=== PATIENT | male | born 1970 ===

== ENCOUNTER 2024-12-15 15:09 | Outpatient (REF) | payer MEDICAID, SELFPAY ==
[2024-12-15 14:48] LABS: Abs Immature Grans 0.12 10^3/uL (0.0-0.06); Absolute Basophil Count 0.07 10^3/uL (0.0-0.2); Absolute Eosinophil Count 0.45 10^3/uL (0.0-0.7); Absolute Lymphocyte Count 1.61 10^3/uL (1.2-3.4); Absolute Monocyte Count 1.04 10^3/uL (0.1-0.8); Absolute Neutrophil Count 6.85 10^3/uL (1.2-6.7); Basophils % 0.7 %; Eosinophils % 4.4 %; Immature Grans % 1.2 %; Lymphocytes % 15.9 %; MCH 20.7 pg (27.0-33.0); MCHC 29.7 % (32.0-36.0); MCV 70 fL (80-95); MPV 10.5 fL (8.0-11.0); Monocytes % 10.3 %; Neutrophils % 67.5 %; Platelet Count 318 10^3/uL (130-400); RBC 5.31 10^6/uL (4.36-5.78); RDW 21.4 % (11.8-14.1); RDW-SD 51.2 fL; WBC 10.14 10^3/uL (4.4-10.8)
[2024-12-15 15:12] LABS: Anisocytosis 2+; Diff Comment RBC Morph Reviewed; Microcytosis 2+
[2024-12-15 15:15] LABS: ALT 189 U/L (16-63); AST 48 U/L (15-37); Albumin 3.1 g/dL (3.4-5.0); Alkaline Phosphatase 488 U/L (46-116); Anion Gap 11.7 mmol/L (3-11); BUN 30 mg/dL (7-18); Bilirubin, Total 0.9 mg/dL (0.2-1.0); CO2 25.3 mmol/L (21.0-32.0); Calcium 9.4 mg/dL (8.5-10.1); Chloride 96 mmol/L (98-107); Estimated GFR 39.42 (mL/min/1.73m2); Glucose 180 mg/dL (74-106); Magnesium 2.5 mg/dL (1.8-2.4); Sodium 133 mmol/L (136-145)
[2024-12-15 15:29] LABS: Hemoglobin A1C 7.9 % (<5.7)
== END 2024-12-15 15:10 | disposition home or self-care (01) ==
LOC: LBN 15:09
PROVIDERS: Visit Provider Family Medicine
DX: I30.0 Acute nonspecific idiopathic pericarditis (principal)
CPT/HCPCS: 80053; 83036; 83735; 85025

== ENCOUNTER 2025-01-02 14:36 | Outpatient (REF) | payer MEDICAID, SELFPAY ==
[2025-01-02 15:06] LABS: Troponin I 11 ng/L (<or=76)
[2025-01-02 15:07] LABS: Abs Immature Grans 0.11 10^3/uL (0.0-0.06); Absolute Basophil Count 0.08 10^3/uL (0.0-0.2); Absolute Lymphocyte Count 0.82 10^3/uL (1.2-3.4); Basophils % 0.4 %; Eosinophils % 0.1 %; HCT 35.3 % (40.0-50.0); HGB 10.3 g/dL (13.5-17.5); Immature Grans % 0.6 %; Lymphocytes % 4.2 %; MCH 21.6 pg (27.0-33.0); MCHC 29.2 % (32.0-36.0); MCV 74 fL (80-95); MPV 10.9 fL (8.0-11.0); Monocytes % 10.6 %; Neutrophils % 84.1 %; Platelet Count 227 10^3/uL (130-400); RBC 4.76 10^6/uL (4.36-5.78); RDW 21.4 % (11.8-14.1); RDW-SD 56.3 fL; WBC 19.51 10^3/uL (4.4-10.8)
[2025-01-02 15:20] LABS: Absolute Eosinophil Count 0.02 10^3/uL (0.0-0.7); Absolute Monocyte Count 2.07 10^3/uL (0.1-0.8); Absolute Neutrophil Count 16.41 10^3/uL (1.2-6.7)
[2025-01-02 15:21] LABS: Anisocytosis 2+; Diff Comment Diff Reviewed; Microcytosis 1+
[2025-01-02 15:29] LABS: ALT 20 U/L (16-63); AST 30 U/L (15-37); Albumin 2.6 g/dL (3.4-5.0); Alkaline Phosphatase 143 U/L (46-116); Anion Gap 7.2 mmol/L (3-11); Bilirubin, Total 0.8 mg/dL (0.2-1.0); CO2 29.8 mmol/L (21.0-32.0); Chloride 98 mmol/L (98-107); Glucose 108 mg/dL (74-106); Potassium 4.5 mmol/L (3.5-5.1); Sodium 135 mmol/L (136-145); TSH 1.55 uIU/mL (0.36-3.74); Total Protein 8.2 g/dL (6.4-8.2)
[2025-01-02 15:35] LABS: BUN 33 mg/dL (7-18); CREATININE 2.5 mg/dL (0.70-1.30); Calcium 9.1 mg/dL (8.5-10.1); Estimated GFR 30.16 (mL/min/1.73m2)
[2025-01-02 15:49] LABS: Hemoglobin A1C 7.7 % (<5.7)
== END 2025-01-02 14:37 | disposition home or self-care (01) ==
LOC: LBN 14:36
PROVIDERS: Visit Provider Family Medicine
DX: E11.628 Type 2 diabetes mellitus with other skin complications (principal); L08.9 Local infection of the skin and subcutaneous tissue, unspecified; N18.32 Chronic kidney disease, stage 3b
CPT/HCPCS: 80053; 83036; 84443; 84484; 85025

== ENCOUNTER 2025-01-02 17:31 | Observation (INO) | payer MEDICAID, SELFPAY ==
[2025-01-02] VITALS (48 sets, daily range): BP systolic 92–137; BP diastolic 42–111; PULSE 80–101; RESP 11–30; TEMP 36.7–39; O2SAT 82–99
--- NOTE | 2025-01-02 18:00 | DI.CT_ITS ---
Exam(s) CT CHEST/ABD/PEL WO EXAM: CT CHEST/ABD/PEL WO CLINICAL HISTORY: abdominal pain,fever. TECHNIQUE: Imaging Protocol: Axial computed tomography images with coronal and sagittal reformatted images were created and reviewed CONTRAST MATERIAL: Intravenous: none Oral: None COMPARISON: No exams were available for comparison FINDINGS: CHEST: Are degraded by motion artifact. LUNGS: There are mild increased markings in the lower lobes, most prominent in the posterior basal se gment of the left lower lobe. There are no large infiltrates nor pleural effusions are no ominous pu lmonary nodules.. MEDIASTINUM: No obvious hilar nor mediastinal adenopathy. Visualized thyroid unremarkable. CARDIAC: Heart size is normal. There is no pericardial effusion.Caliber of the thoracic aorta is wit hin normal limits. OSSEOUS: No significant osseous lesions.No fractures evident.. ABDOMEN: Mildly elevated left hemidiaphragm. No evidence of sub diaphragmatic abscess although the spleen is noted to be enlarged. There is no ascites. LIVER: There are no obvious focal hepatic lesions evident of this noninfused study. GALLBLADDER/BILIARY: No obvious gallbladder pathology. CBD is not dilated. PANCREAS: No evidence of obvious pancreatic mass nor dilatation of the pancreatic duct. SPLEEN: Spleen is enlarged. Measures 18 cm craniocaudal. ADRENALS: There are no significant adrenal masses. KIDNEYS: No calculi nor hydronephrosis. No obvious solid renal masses. No cysts evident. ABDOMINAL AORTA: Abdominal aorta is not enlarged. LYMPH NODES: There few slightly enlarged retroperitoneal and para-aortic lymph nodes. Also some lymp hadenopathy in the pelvis along the iliac chains. ABDOMINAL WALL/GI: No evidence of significant anterior abdominal wall nor inguinal hernia. No evidence of bowel obstruction. PELVIS: LYMPH NODES: As above GI: No evidence of appendicitis.No evidence of sigmoid diverticulitis. URINARY BLADDER: Urinary bladder is slightly distended. There is also gas bubble in the urinary blad millie. There is a Barnes catheter/balloon but it is not in the urinary bladder and is indeed in the pen ile urethra REPRODUCTIVE: Prostate small and seminal vesicles unremarkable. OSSEOUS: No significant osseous lesions. No fractures. IMPRESSION: 1. No acute intrathoracic findings. 2. Splenomegaly and there also mildly enlarged para-aortic lymph nodes evident. 3. Barnes catheter and balloon are located within the penile urethra and should be repositioned into t he urinary bladder. Single bubble in the bladder lumen is most probably related to the recent Barnes catheterization procedure. RADIATION DOSE DELIVERED: 1,793.92mGy.cm Total DLP DATA REPOSITORY: All CT scans at this facility are submitted to the National Radiology Data Registry (NRDR) Dose Index Registry (DIR) with the [employer] (ACR). RADIATION OPTIMIZATION: All CT scans at this facility use at least one of these dose optimization te chniques: automated exposure control; mA and/or kV adjustment per patient size (includes targeted exa ms where dose is matched to clinical indication); or iterative reconstruction.
--- NOTE | 2025-01-02 18:00 | RT.EKG_ITS ---
APPROVED REPORT Exam: Resting ECG Reason for Exam: weakness Patient Location: E HR:91 bpm ECG Measurements Heart Rate 91 AXIS CA 174 P 44 QRSd 103 QRS 100 QT 396 T 55 QTc 487 Conclusion Sinus rhythm...normal P axis, V-rate 60- 99 Right axis deviation...QRS axis (100,269) Low voltage, precordial leads...precordial leads <1.0mV
[2025-01-02 18:15] LABS: BE (Venous) 6 mmol/L (-2-3); HCO3 (Venous) 30 mmol/L (23-28); Lactate 1.1 mmol/L (<or=2.0); O2 Sat (Venous) 67 %; TCO2 (Venous) 28 mmol/L (24-29); pCO2 (Venous) 48 mmHg (41-51); pH (Venous) 7.41 (7.31-7.41); pO2 (Venous) 38 mmHg
[2025-01-02 18:20] LABS: Abs Immature Grans 0.15 10^3/uL (0.0-0.06); Absolute Eosinophil Count 0.02 10^3/uL (0.0-0.7); Basophils % 0.4 %; Eosinophils % 0.1 %; HCT 35.6 % (40.0-50.0); HGB 10.5 g/dL (13.5-17.5); Immature Grans % 0.8 %; Lymphocytes % 4.8 %; MCH 21.5 pg (27.0-33.0); MCHC 29.5 % (32.0-36.0); MCV 73 fL (80-95); MPV 9.9 fL (8.0-11.0); Monocytes % 9.6 %; Neutrophils % 84.3 %; Platelet Count 226 10^3/uL (130-400); RBC 4.88 10^6/uL (4.36-5.78); RDW-SD 54.3 fL; WBC 18.69 10^3/uL (4.4-10.8)
[2025-01-02 18:22] LABS: Absolute Basophil Count 0.07 10^3/uL (0.0-0.2); Absolute Monocyte Count 1.79 10^3/uL (0.1-0.8); Absolute Neutrophil Count 15.76 10^3/uL (1.2-6.7)
[2025-01-02 18:34] LABS: Anisocytosis 2+; Diff Comment Diff Reviewed; Microcytosis 1+
[2025-01-02 18:37] LABS: ALT 22 U/L (16-63); AST 29 U/L (15-37); Albumin 2.6 g/dL (3.4-5.0); Alkaline Phosphatase 149 U/L (46-116); Anion Gap 6.3 mmol/L (3-11); BUN 31 mg/dL (7-18); Bilirubin, Total 0.8 mg/dL (0.2-1.0); CO2 30.7 mmol/L (21.0-32.0); CREATININE 2.5 mg/dL (0.70-1.30); Calcium 9.2 mg/dL (8.5-10.1); Chloride 97 mmol/L (98-107); Estimated GFR 30.16 (mL/min/1.73m2); Glucose 149 mg/dL (74-106); Lipase 20 U/L (<78); Potassium 4.4 mmol/L (3.5-5.1); Sodium 134 mmol/L (136-145); Total Protein 8.5 g/dL (6.4-8.2); Troponin I 15 ng/L (<or=76)
[2025-01-02] MEDS: Dexamethasone 10 MG/ML VIAL 6 MG IVP (18:38)
[2025-01-02] MEDS: Albuterol/Ipratropium 3 ML UPD VIAL UPD (18:39)
[2025-01-02] MEDS: ACETAMINOPHEN 500 MG/50 ML BAG 200 MG IVPB (18:39)
[2025-01-02] MEDS: PIPERACILLIN/TAZO 4.5 GM in Normal Saline 100 ML IVPB (18:46)
[2025-01-02] MEDS: Lactated Ringers 1,000 ML 125 ML IV (20:03)
[2025-01-02 20:20] LABS: COVID-19 PCR Negative (Negative); Influenza A PCR Negative (Negative); Influenza B PCR Negative (Negative); RSV PCR Negative (Negative)
[2025-01-02 20:21] LABS: Source Nasopharynx
--- NOTE | 2025-01-02 20:22 | DI.VRAD_ITS ---
Addendum created by Vicente Owusu MD on 01/02/2025 8:34:12 PM EDT: No acute abnormality involving the imaged portions of the right shoulder. No right shoulder joint effusion. No focal osseous lesion. No soft tissue edema or focal abscess. Initial report created on 01/02/2025 8:20:45 PM EDT: PROCEDURE INFORMATION: Exam: CT Chest Without Contrast; Diagnostic Exam date and time: 01/02/2025 7:18 PM Age: 54 years old Clinical indication: Abdominal pain; fever TECHNIQUE: Imaging protocol: Diagnostic computed tomography of the chest without contrast. 3D rendering (Not supervised by radiologist): MIP and/or 3D reconstructed images were created by the technologist. COMPARISON: No relevant prior studies available. FINDINGS: Lungs: No acute alveolar or ground glass infiltrate. Posterior left lower lobe linear parenchymal scarring or subsegmental collapse / atelectasis. Pleural spaces: No pleural fluid collection. No pneumothorax. Heart: No pericardial effusion. Lymph nodes: No enlarged lymph nodes. Vasculature: Normal caliber thoracic aorta without aneurysm. Bones/joints: Spinal degenerative changes. Soft tissues: Gynecomastia. IMPRESSION: No acute pulmonary infiltrate or pleural fluid collection. PROCEDURE INFORMATION: Exam: CT Abdomen And Pelvis Without Contrast Exam date and time: 01/02/2025 7:18 PM Age: 54 years old Clinical indication: Abdominal pain; fever TECHNIQUE: Imaging protocol: Computed tomography of the abdomen and pelvis without contrast. 3D rendering (Not supervised by radiologist): MIP and/or 3D reconstructed images were created by the technologist. COMPARISON: No relevant prior studies available. FINDINGS: Liver: Normal. No mass. Gallbladder and biliary ducts: Question a few faint stones within the proximal dependent portion of the gallbladder lumen versus overlying artifact. No ductal dilation. Pancreas: Normal. No ductal dilation. Spleen: Splenomegaly (17.4 cm CC dimension). Adrenal glands: Normal. No mass. Kidneys and ureters: Normal. No hydronephrosis. Stomach and bowel: Unremarkable. No obstruction. No mucosal thickening. Appendix: Normal appendix. Intraperitoneal space: No free air. No significant fluid collection. Vasculature: Unremarkable. No abdominal aortic aneurysm. Lymph nodes: A few scattered enlarged retroperitoneal and pelvic lymph nodes measuring up to 18-22 mm in size. Enlarged lymph nodes within each inguinal region. Urinary bladder: Please note that the Kwan catheter tip / Kwan catheter balloon are located within the penile urethra (sagittal images 66-67 / axial images [id number], series 2). Air within anterior portion of the bladder lumen, likely following kwan catheterization. Bladder infection cannot be totally excluded. Reproductive: Unremarkable as visualized. Bones/joints: Spinal degenerative changes. Soft tissues: Posterior subcutaneous edema in the lumbar region. IMPRESSION: 1. Please note that the Kwan catheter tip / Kwan catheter balloon are located within the penile urethra (sagittal images 66-67 / axial images [id number], series 2). 2. Splenomegaly (17.4 cm CC dimension). 3. A few scattered enlarged retroperitoneal and pelvic lymph nodes measuring up to 18-22 mm in size. Enlarged lymph nodes within each inguinal region. Dictated and Authenticated by: Vicente Owusu MD. Orderin Paco Torres MD
[2025-01-02 20:30] LABS: Troponin I 15 ng/L (<or=76)
[2025-01-02 20:38] LABS: Lab Add On Test DONE
[2025-01-02 21:04] LABS: Procalcitonin 6.88 ng/mL
[2025-01-02 21:19] LABS: Bilirubin Negative (Negative); Blood Moderate (Negative); Clarity Turbid (Clear); Glucose 250 mg/dL (Negative); Ketones Negative (Negative); Leukocyte Esterase Large (Negative); Nitrite Negative (Negative); Specific Gravity 1.015 (1.005-1.025); Urobilinogen 0.2 mg/dL (Up to 0.2)
[2025-01-02 21:28] LABS: C & S Indicated? Yes; WBC >50 HPF (0-5)
[2025-01-02] MEDS: VANCOMYCIN 2,000 MG in Normal Saline 500 ML 250 MG IVPB (21:38)
--- NOTE | 2025-01-02 21:54 | HPE_ITS ---
Date of service: 01/02/25 Time of Service: 21:54 Assessment and Plan Assessment and plan (1) UTI (urinary tract infection): Status: Acute Assessment and plan: Patient was started on vancomycin and awaiting culture results. (2) Diabetes: Status: Chronic Assessment and plan: Patient is on multiple medications and at this point they have not been reconciled. Will address when reconciliation is complete (3) Cellulitis: Status: Acute Assessment and plan: Patient does appear to have significant cellulitis on his legs. Will continue with vancomycin and add we will get a wound consult (4) Hypoventilation associated with obesity: Status: Acute Assessment and plan: Patient does appear to have significant hypoventilation as obstructive sleep apnea. Patient does not a CPAP at home. Strong recommendation for sleep study as well as initiation of CPAP (5) Obstructive sleep apnea: Status: Chronic Assessment and plan: As above (6) Clostridioides difficile diarrhea: Status: Acute Assessment and plan: This is a potential diagnosis of the gentleman is taking vancomycin 125 every 6 which would be an appropriate dose for a C. difficile infection. It does appear like he has been taking this for over a month though and recommended obtaining records from the prison facility to elucidate the real reason. (7) Neurogenic bladder: Status: Acute Assessment and plan: Patient does have a Barnes in place and this will be replaced in the ED. (8) CHF (congestive heart failure): Status: Chronic Assessment and plan: I will order an echocardiogram as well as a BNP. At this point it is unknown what sort of heart failure he has just shows up in his old records. Will also check a BNP at this time is unknown what type of congestive heart failure he has systolic versus diastolic acute versus chronic (9) Low mean corpuscular volume (MCV): Status: Acute Assessment and plan: Checking an iron and TIBC. (10) Depression: Status: Chronic Assessment and plan: Will continue with his home meds once they have been reconciled (11) Substance abuse: Status: Acute Assessment and plan: Continue with his home meds once they have been reconciled. I will also order a urine drug screen STD due to urine drug screen. History of Present Illness History of Present Illness Chief Complaint: somnolence and hypoxia Narrative: This is a 54-year-old gentleman who is new to the [facility] system and is currently living at a [place] [facility] rehab facility who presents today with worsening somnolence as well as hypoxia. Unfortunately upon my interview with the patient he is quite somnolent and keeps falling asleep interview. I have reviewed records from the prison facility and currently the patient is taking oral vancomycin as well as Bactrim for unknown reason. Work up in the ED included ct of chest/abd/pelvis as well as cbc/cmp/viral panel/ekg. the patient was noted to be hypoxic as well but his VBG was actually fairly benign. The patient was noted to have a decreased MCV as well. I have reviewed records from the prison facility. At the time of this admission reconciliation his medication is not done. Review of Systems Unobtainable due to mental status PFSH All Active Problems (Updated 01/02/25 @ 22:06 by Roger Farrell MD) Substance abuse (Acute) Depression (Chronic) Low mean corpuscular volume (MCV) (Acute) CHF (congestive heart failure) (Chronic) Neurogenic bladder (Acute) Clostridioides difficile diarrhea (Acute) Obstructive sleep apnea (Chronic) Hypoventilation associated with obesity (Acute) Cellulitis (Acute) Diabetes (Chronic) UTI (urinary tract infection) (Acute) Social History Smoking risk assessment performed?: No Exam Narrative Exam Narrative: Head eyes ears nose and throat: Normocephalic atraumatic mucous membranes moist oropharynx clear extract motions are intact he does appear to have a disconjugate gaze and mild anisocoria Neck: Enlarged but no obvious JVD or thyromegaly cardiovascular: Distant but no murmur rubs or gallops Lungs: Clear to auscultation bilaterally no accessory muscle use Abdomen: Protuberant bowel sounds decreased in all 4 quadrants Extremities: 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 Neurologic: Cannot be completely assessed due to mental status psych: Cannot be completely assessed due to mental status Results Labs 01/02/25 18:10 01/02/25 18:10 Labs: Laboratory Results - last 24 hr 01/02/25 01/02/25 01/02/25 18:10 19:39 20:08 WBC 18.69 H RBC 4.88 Hgb 10.5 L Hct 35.6 L MCV 73 L MCH 21.5 L MCHC 29.5 L RDW 21.0 H Plt Count 226 MPV 9.9 Immature Gran % 0.8 Neutrophils % 84.3 Lymphocytes % 4.8 Monocytes % 9.6 Eosinophils % 0.1 Basophils % 0.4 Nucleated RBC % 0.0 Absolute Neutrophils 15.76 H Absolute Lymphocytes 0.90 L Absolute Monocytes 1.79 H Absolute Eosinophils 0.02 Absolute Basophils 0.07 RBC Morphology See Below Anisocytosis 2+ Microcytosis 1+ VBG pH 7.41 VBG pCO2 48 VBG pO2 38 VBG HCO3 30 H VBG Total CO2 28 VBG O2 Saturation 67 VBG Base Excess 6 H VBG Lactate 1.1 Sodium 134 L Potassium 4.4 Chloride 97 L Carbon Dioxide 30.7 Anion Gap 6.3 BUN 31 H Creatinine 2.5 H Est GFR (CKD-EPI 2020) 30.16 Glucose 149 H Calcium 9.2 Total Bilirubin 0.8 AST 29 ALT 22 Alkaline Phosphatase 149 H Troponin I 15 15 Total Protein 8.5 H Albumin 2.6 L Lipase 20 Procalcitonin 6.88 Urine Color Urine Clarity Urine pH Ur Specific [place] Urine Protein Urine Ketones Urine Blood Urine Nitrite Urine Bilirubin Urine Urobilinogen Ur Leukocyte Esterase Urine RBC Urine WBC Ur Epithelial Cells Urine Crystals Urine Bacteria Urine Mucus Ur Culture Indicated? Urine Glucose COVID-19 Source Nasopharynx SARS-CoV-2 (PCR) Negative Influenza Type A (PCR) Negative Influenza Type B (PCR) Negative RSV (PCR) Negative Add-On Test Request DONE 01/02/25 20:50 WBC RBC Hgb Hct MCV MCH MCHC RDW Plt Count MPV Immature Gran % Neutrophils % Lymphocytes % Monocytes % Eosinophils % Basophils % Nucleated RBC % Absolute Neutrophils Absolute Lymphocytes Absolute Monocytes Absolute Eosinophils Absolute Basophils RBC Morphology Anisocytosis Microcytosis VBG pH VBG pCO2 VBG pO2 VBG HCO3 VBG Total CO2 VBG O2 Saturation VBG Base Excess VBG Lactate Sodium Potassium Chloride Carbon Dioxide Anion Gap BUN Creatinine Est GFR (CKD-EPI 2020) Glucose Calcium Total Bilirubin AST ALT Alkaline Phosphatase Troponin I Total Protein Albumin Lipase Procalcitonin Urine Color Yellow Urine Clarity Turbid Urine pH 6.0 Ur Specific [place] 1.015 Urine Protein 100 H Urine Ketones Negative Urine Blood Moderate H Urine Nitrite Negative Urine Bilirubin Negative Urine Urobilinogen 0.2 Ur Leukocyte Esterase Large H Urine RBC Not Applicable Urine WBC >50 H Ur Epithelial Cells Not Applicable Urine Crystals Not Applicable Urine Bacteria Not Applicable Urine Mucus Not Applicable Ur Culture Indicated? Yes Urine Glucose 250 H COVID-19 Source SARS-CoV-2 (PCR) Influenza Type A (PCR) Influenza Type B (PCR) RSV (PCR) Add-On Test Request Last Vital Signs Temp 39.0 C H 01/02/25 20:59 Pulse 90 01/02/25 20:59 Resp 20 01/02/25 20:59 BP 126/111 H 01/02/25 20:59 Pulse Ox 90 L 01/02/25 20:59 Time Spent Time spent with Patient: 40-54 minutes Time was spent: preparing to see the patient(eg.review tests), obtaining and/or reviewing separately otained hiistory, ordering medications,tests, procedures, referring, communicating with other health manager of care, indepentently interpreting results, counseling the patient and care coordination
--- NOTE | 2025-01-02 22:17 | W.PC.ACHO ---
Registration Status: Primary Language: Preferred Language: ED Information & Data Chief Complaint Fever 01/02/25 20:59 Chief Complaint Fever 01/02/25 17:40 [facility]riage Note [facility] 01/02/25 17:40 concerned about increased lethargy and increased WBC count. Unknown last known well. PT struggling to answer questions fully and accurately. increased work of breathing, tachypnea Most Recent Vital Signs Temperature 39.0 C H 01/02/25 20:59 Temperature Source Oral 01/02/25 20:59 Pulse 86 01/02/25 22:02 Pulse 87 01/02/25 22:02 Respiratory Rate 15 01/02/25 22:02 Blood Pressure 131/69 01/02/25 22:02 Blood Pressure Mean 88 01/02/25 22:02 Blood Pressure Position Sitting 01/02/25 17:40 Pulse Oximetry 94 01/02/25 22:02 Oxygen Delivery Method Room Air 01/02/25 17:40 Oxygen Flow Rate 0 01/02/25 17:40 Active Medications Generic Name Dose Route Start Last Admin Trade Name Alvin PRN Reason Stop Dose Admin Ringer's Solution 1,000 mls @ 125 mls/hr 01/02/25 20:00 01/02/25 20:03 IV 125 mls/hr INFUSION DEE Administration Vancomycin HCl 2,000 mg/ 500 mls @ 250 mls/hr 01/02/25 21:07 01/02/25 21:38 Sodium Chloride IVPB 01/02/25 23:06 250 mls/hr NOW ONE Administration IV IV Catheter Type [Right Saline Lock Antecubital] IV Catheter Type [Left Saline Lock Antecubital] IV Catheter Gauge [Right 18 Antecubital] IV Catheter Gauge [Left 18 Antecubital] Diet Orders Category Date Time Status Diabetes Consistent CHO [DIET] Nutrition 01/03/25 Breakfast Ordered Diagnostics 01/02/25 01/02/25 01/02/25 Range/Units 22:10 22:01 21:51 WBC Pending (4.4-10.8) 10^3/uL RBC Pending (4.36-5.78) 10^6/uL Hgb Pending (13.5-17.5) g/dL Hct Pending (40.0-50.0) % MCV Pending (80-95) fL MCH Pending (27.0-33.0) pg MCHC Pending (32.0-36.0) % RDW Pending (11.8-14.1) % Plt Count Pending (130-400) 10^3/uL MPV Pending (8.0-11.0) fL Immature Gran % % Neutrophils % % Lymphocytes % % Monocytes % % Eosinophils % % Basophils % % Nucleated RBC % (0.0-0.3) % Absolute Neutrophils (1.2-6.7) 10^3/uL Absolute Lymphocytes (1.2-3.4) 10^3/uL Absolute Monocytes (0.1-0.8) 10^3/uL Absolute Eosinophils (0.0-0.7) 10^3/uL Absolute Basophils (0.0-0.2) 10^3/uL RBC Morphology Anisocytosis Microcytosis VBG pH (7.31-7.41) VBG pCO2 (41-51) mmHg VBG pO2 mmHg VBG HCO3 (23-28) mmol/L VBG Total CO2 (24-29) mmol/L VBG O2 Saturation % VBG Base Excess (-2-3) mmol/L VBG Lactate (<or=2.0) mmol/L Sodium (136-145) mmol/L Potassium (3.5-5.1) mmol/L Chloride (98-107) mmol/L Carbon Dioxide (21.0-32.0) mmol/L Anion Gap (3-11) mmol/L BUN (7-18) mg/dL Creatinine (0.70-1.30) mg/dL Est GFR (CKD-EPI 2020) (mL/min/1.73m2) Glucose (74-106) mg/dL Hemoglobin A1c Pending Calcium (8.5-10.1) mg/dL Total Bilirubin (0.2-1.0) mg/dL AST (15-37) U/L ALT (16-63) U/L Alkaline Phosphatase (46-116) U/L Troponin I Pending (<or=76) ng/L Total Protein (6.4-8.2) g/dL Albumin (3.4-5.0) g/dL Lipase (<78) U/L Procalcitonin ng/mL Urine Color (Yellow) Urine Clarity (Clear) Urine pH (5-8) Ur Specific [place] (1.005-1.025) Urine Protein (Neg-Trace) mg/dL Urine Ketones (Negative) mg/dL Urine Blood (Negative) Urine Nitrite (Negative) Urine Bilirubin (Negative) Urine Urobilinogen (Up to 0.2) mg/dL Ur Leukocyte Esterase (Negative) Urine RBC Urine WBC (0-5) HPF Ur Epithelial Cells Urine Crystals Urine Bacteria Urine Mucus Ur Culture Indicated? Urine Glucose (Negative) mg/dL COVID-19 Source SARS-CoV-2 (PCR) (Negative) Influenza Type A (PCR) (Negative) Influenza Type B (PCR) (Negative) RSV (PCR) (Negative) Add-On Test Request 01/02/25 01/02/25 01/02/25 Range/Units 20:50 20:08 19:39 WBC (4.4-10.8) 10^3/uL RBC (4.36-5.78) 10^6/uL Hgb (13.5-17.5) g/dL Hct (40.0-50.0) % MCV (80-95) fL MCH (27.0-33.0) pg MCHC (32.0-36.0) % RDW (11.8-14.1) % Plt Count (130-400) 10^3/uL MPV (8.0-11.0) fL Immature Gran % % Neutrophils % % Lymphocytes % % Monocytes % % Eosinophils % % Basophils % % Nucleated RBC % (0.0-0.3) % Absolute Neutrophils (1.2-6.7) 10^3/uL Absolute Lymphocytes (1.2-3.4) 10^3/uL Absolute Monocytes (0.1-0.8) 10^3/uL Absolute Eosinophils (0.0-0.7) 10^3/uL Absolute Basophils (0.0-0.2) 10^3/uL RBC Morphology Anisocytosis Microcytosis VBG pH (7.31-7.41) VBG pCO2 (41-51) mmHg VBG pO2 mmHg VBG HCO3 (23-28) mmol/L VBG Total CO2 (24-29) mmol/L VBG O2 Saturation % VBG Base Excess (-2-3) mmol/L VBG Lactate (<or=2.0) mmol/L Sodium (136-145) mmol/L Potassium (3.5-5.1) mmol/L Chloride (98-107) mmol/L Carbon Dioxide (21.0-32.0) mmol/L Anion Gap (3-11) mmol/L BUN (7-18) mg/dL Creatinine (0.70-1.30) mg/dL Est GFR (CKD-EPI 2020) (mL/min/1.73m2) Glucose (74-106) mg/dL Hemoglobin A1c Calcium (8.5-10.1) mg/dL Total Bilirubin (0.2-1.0) mg/dL AST (15-37) U/L ALT (16-63) U/L Alkaline Phosphatase (46-116) U/L Troponin I 15 (<or=76) ng/L Total Protein (6.4-8.2) g/dL Albumin (3.4-5.0) g/dL Lipase (<78) U/L Procalcitonin 6.88 ng/mL Urine Color Yellow (Yellow) Urine Clarity Turbid (Clear) Urine pH 6.0 (5-8) Ur Specific [place] 1.015 (1.005-1.025) Urine Protein 100 H (Neg-Trace) mg/dL Urine Ketones Negative (Negative) mg/dL Urine Blood Moderate H (Negative) Urine Nitrite Negative (Negative) Urine Bilirubin Negative (Negative) Urine Urobilinogen 0.2 (Up to 0.2) mg/dL Ur Leukocyte Esterase Large H (Negative) Urine RBC Not Applicable Urine WBC >50 H (0-5) HPF Ur Epithelial Cells Not Applicable Urine Crystals Not Applicable Urine Bacteria Not Applicable Urine Mucus Not Applicable Ur Culture Indicated? Yes Urine Glucose 250 H (Negative) mg/dL COVID-19 Source Nasopharynx SARS-CoV-2 (PCR) Negative (Negative) Influenza Type A (PCR) Negative (Negative) Influenza Type B (PCR) Negative (Negative) RSV (PCR) Negative (Negative) Add-On Test Request DONE 01/02/25 Range/Units 18:10 WBC 18.69 H (4.4-10.8) 10^3/uL RBC 4.88 (4.36-5.78) 10^6/uL Hgb 10.5 L (13.5-17.5) g/dL Hct 35.6 L (40.0-50.0) % MCV 73 L (80-95) fL MCH 21.5 L (27.0-33.0) pg MCHC 29.5 L (32.0-36.0) % RDW 21.0 H (11.8-14.1) % Plt Count 226 (130-400) 10^3/uL MPV 9.9 (8.0-11.0) fL Immature Gran % 0.8 % Neutrophils % 84.3 % Lymphocytes % 4.8 % Monocytes % 9.6 % Eosinophils % 0.1 % Basophils % 0.4 % Nucleated RBC % 0.0 (0.0-0.3) % Absolute Neutrophils 15.76 H (1.2-6.7) 10^3/uL Absolute Lymphocytes 0.90 L (1.2-3.4) 10^3/uL Absolute Monocytes 1.79 H (0.1-0.8) 10^3/uL Absolute Eosinophils 0.02 (0.0-0.7) 10^3/uL Absolute Basophils 0.07 (0.0-0.2) 10^3/uL RBC Morphology See Below Anisocytosis 2+ Microcytosis 1+ VBG pH 7.41 (7.31-7.41) VBG pCO2 48 (41-51) mmHg VBG pO2 38 mmHg VBG HCO3 30 H (23-28) mmol/L VBG Total CO2 28 (24-29) mmol/L VBG O2 Saturation 67 % VBG Base Excess 6 H (-2-3) mmol/L VBG Lactate 1.1 (<or=2.0) mmol/L Sodium 134 L (136-145) mmol/L Potassium 4.4 (3.5-5.1) mmol/L Chloride 97 L (98-107) mmol/L Carbon Dioxide 30.7 (21.0-32.0) mmol/L Anion Gap 6.3 (3-11) mmol/L BUN 31 H (7-18) mg/dL Creatinine 2.5 H (0.70-1.30) mg/dL Est GFR (CKD-EPI 2020) 30.16 (mL/min/1.73m2) Glucose 149 H (74-106) mg/dL Hemoglobin A1c Calcium 9.2 (8.5-10.1) mg/dL Total Bilirubin 0.8 (0.2-1.0) mg/dL AST 29 (15-37) U/L ALT 22 (16-63) U/L Alkaline Phosphatase 149 H (46-116) U/L Troponin I 15 (<or=76) ng/L Total Protein 8.5 H (6.4-8.2) g/dL Albumin 2.6 L (3.4-5.0) g/dL Lipase 20 (<78) U/L Procalcitonin ng/mL Urine Color (Yellow) Urine Clarity (Clear) Urine pH (5-8) Ur Specific [place] (1.005-1.025) Urine Protein (Neg-Trace) mg/dL Urine Ketones (Negative) mg/dL Urine Blood (Negative) Urine Nitrite (Negative) Urine Bilirubin (Negative) Urine Urobilinogen (Up to 0.2) mg/dL Ur Leukocyte Esterase (Negative) Urine RBC Urine WBC (0-5) HPF Ur Epithelial Cells Urine Crystals Urine Bacteria Urine Mucus Ur Culture Indicated? Urine Glucose (Negative) mg/dL COVID-19 Source SARS-CoV-2 (PCR) (Negative) Influenza Type A (PCR) (Negative) Influenza Type B (PCR) (Negative) RSV (PCR) (Negative) Add-On Test Request 01/02/25 20:50 Urine Culture - Pending Urine - Reflex from Ua Intake and Output - 24 Hour Total 01/02/25 17:16 thru 01/02/25 21:06 Intake Total 150 Output Total 800 Balance -650 Weight 175.9 kg Intake: IV 150 Output: Urine 800 Falls Risk Assessment History of Falls No History 01/02/25 20:59 Contributing Factors No Factors 01/02/25 20:59 Ambulatory Aids Independent 01/02/25 20:59 Tubes/Lines None 01/02/25 20:59 Gait Evaluation No gait disturbance 01/02/25 20:59 Cognition No cognitive impairment 01/02/25 20:59 Fall Total Score 0 01/02/25 20:59 Level of Risk Standard/Low Risk 01/02/25 20:59 Problems Substance abuse (Acute) Depression (Chronic) Low mean corpuscular volume (MCV) (Acute) CHF (congestive heart failure) (Chronic) Neurogenic bladder (Acute) Clostridioides difficile diarrhea (Acute) Obstructive sleep apnea (Chronic) Hypoventilation associated with obesity (Acute) Cellulitis (Acute) Diabetes (Chronic) UTI (urinary tract infection) (Acute) v v v v v v v v v Sending and/or Receiving Nurses: Please use comment section below to note any information pertinent to the patient hand-off not included above. Information / Comments: Report taken from [employer] Brad, patient came from [facility], sweating, confused and lethargic, Has Satge 2 on buttocks and coccyx area, barrier cream applied. Barnes changed w/ sediments output. Has Temp of 102.2 tylenol given. Patient reported w/ double leg amputee, obese and abdo w/ tenderness. On 4 L of O2. All questions asked answered appropriately.. Report received from:
[2025-01-02 22:24] LABS: Troponin I 16 ng/L (<or=76)
[2025-01-02 22:48] LABS: Hemoglobin A1C 7.6 % (<5.7)
--- NOTE | 2025-01-02 23:15 | W.ED.GENAD ---
Discharge Plan Disposition Patient Disposition: Admit to [facility] Condition: Serious Discharge Details Clinical Impression: UTI (urinary tract infection), Cellulitis, Hypoventilation associated with obesity, Obstructive sleep apnea Admit Date/Time: 01/02/25 21:51 Admit Provider: Roger Farrell Attending Provider: Roger Farrell Primary Care Provider: Unknown,Unknown ED Provider: Melissa Antonio [facility] General Date/Time Provider Initiated Documentation: 01/02/25 17:45. HPI Narrative: 54-year-old male with CHF, diabetes, bilateral amputations, venous insufficiency, urinary retention, C. difficile infection, and VRE in urinary culture. Pres[facility] from [facility] for fever, worsening confusion, and weakness. Discharged from [facility], at [facility] for a week. Barnes catheter in place for a month. Reports abdominal pain, no other significant complaints. Poor historian. General Stated Complaint: Fever PANTERA: 2 Exam Narrative Exam Narrative: General Appearance: Alert and oriented, but very tired, falls asleep immediately after talking. Vital signs: Within normal limits. HEENT: Left strabismus with disconjugate gaze, dry mucous membranes. Respiratory: Lungs clear to auscultation, mildly increased work of breathing. Cardiovascular: No murmur or rub. Gastrointestinal: Diffuse abdominal tenderness. Back, Musculoskeletal: Amputation sites not infected. Skin: Macerated erythematous tissue along entire buttocks bilaterally. Neurological: No Lauren's gangrene, tissue necrosis, or crepitus. Other observations: None. Course Vital Signs Vital signs: Vital Signs Temperature 39.0 C H 01/02/25 17:40 Pulse 92 H 01/02/25 17:40 Respiratory Rate 30 H 01/02/25 17:40 Blood Pressure 128/93 H 01/02/25 17:40 Pulse Oximetry 82 L 01/02/25 17:40 Temperature 39.0 C H 01/02/25 20:59 Temperature Source Oral 01/02/25 20:59 Pulse 86 01/02/25 22:02 Pulse 87 01/02/25 22:02 Respiratory Rate 15 01/02/25 22:02 Blood Pressure 131/69 01/02/25 22:02 Blood Pressure Mean 88 01/02/25 22:02 Blood Pressure Position Sitting 01/02/25 17:40 Pulse Oximetry 94 01/02/25 22:02 Oxygen Delivery Method Room Air 01/02/25 17:40 Oxygen Flow Rate 0 01/02/25 17:40 Lab/Test Results Lab/Test Results: 01/02/25 20:50 Urine - Reflex from Ua Urine Culture - Pending Laboratory Tests Range/Units 01/02/25 01/02/25 01/02/25 18:10 19:39 20:08 WBC (4.4-10.8) 10^3/uL 18.69 H RBC (4.36-5.78) 10^6/uL 4.88 Hgb (13.5-17.5) g/dL 10.5 L Hct (40.0-50.0) % 35.6 L MCV (80-95) fL 73 L MCH (27.0-33.0) pg 21.5 L MCHC (32.0-36.0) % 29.5 L RDW (11.8-14.1) % 21.0 H Plt Count (130-400) 10^3/uL 226 MPV (8.0-11.0) fL 9.9 Immature Gran % % 0.8 Neutrophils % % 84.3 Lymphocytes % % 4.8 Monocytes % % 9.6 Eosinophils % % 0.1 Basophils % % 0.4 Nucleated RBC % (0.0-0.3) % 0.0 Absolute Neutrophils (1.2-6.7) 10^3/uL 15.76 H Absolute Lymphocytes (1.2-3.4) 10^3/uL 0.90 L Absolute Monocytes (0.1-0.8) 10^3/uL 1.79 H Absolute Eosinophils (0.0-0.7) 10^3/uL 0.02 Absolute Basophils (0.0-0.2) 10^3/uL 0.07 RBC Morphology See Below Anisocytosis 2+ Microcytosis 1+ VBG pH (7.31-7.41) 7.41 VBG pCO2 (41-51) mmHg 48 VBG pO2 mmHg 38 VBG HCO3 (23-28) mmol/L 30 H VBG Total CO2 (24-29) mmol/L 28 VBG O2 Saturation % 67 VBG Base Excess (-2-3) mmol/L 6 H VBG Lactate (<or=2.0) mmol/L 1.1 Sodium (136-145) mmol/L 134 L Potassium (3.5-5.1) mmol/L 4.4 Chloride (98-107) mmol/L 97 L Carbon Dioxide (21.0-32.0) mmol/L 30.7 Anion Gap (3-11) mmol/L 6.3 BUN (7-18) mg/dL 31 H Creatinine (0.70-1.30) mg/dL 2.5 H Est GFR (CKD-EPI 2020) (mL/min/1.73m2) 30.16 Glucose (74-106) mg/dL 149 H Hemoglobin A1c (<5.7) % 7.6 H Calcium (8.5-10.1) mg/dL 9.2 Total Bilirubin (0.2-1.0) mg/dL 0.8 AST (15-37) U/L 29 ALT (16-63) U/L 22 Alkaline Phosphatase (46-116) U/L 149 H Troponin I (<or=76) ng/L 15 15 Total Protein (6.4-8.2) g/dL 8.5 H Albumin (3.4-5.0) g/dL 2.6 L Lipase (<78) U/L 20 Procalcitonin ng/mL 6.88 Urine Color (Yellow) Urine Clarity (Clear) Urine pH (5-8) Ur Specific [place] (1.005-1.025) Urine Protein (Neg-Trace) mg/dL Urine Ketones (Negative) mg/dL Urine Blood (Negative) Urine Nitrite (Negative) Urine Bilirubin (Negative) Urine Urobilinogen (Up to 0.2) mg/dL Ur Leukocyte Esterase (Negative) Urine RBC Urine WBC (0-5) HPF Ur Epithelial Cells Urine Crystals Urine Bacteria Urine Mucus Ur Culture Indicated? Urine Glucose (Negative) mg/dL COVID-19 Source Nasopharynx SARS-CoV-2 (PCR) (Negative) Negative Influenza Type A (PCR) (Negative) Negative Influenza Type B (PCR) (Negative) Negative RSV (PCR) (Negative) Negative Add-On Test Request DONE Range/Units 01/02/25 20:50 WBC (4.4-10.8) 10^3/uL RBC (4.36-5.78) 10^6/uL Hgb (13.5-17.5) g/dL Hct (40.0-50.0) % MCV (80-95) fL MCH (27.0-33.0) pg MCHC (32.0-36.0) % RDW (11.8-14.1) % Plt Count (130-400) 10^3/uL MPV (8.0-11.0) fL Immature Gran % % Neutrophils % % Lymphocytes % % Monocytes % % Eosinophils % % Basophils % % Nucleated RBC % (0.0-0.3) % Absolute Neutrophils (1.2-6.7) 10^3/uL Absolute Lymphocytes (1.2-3.4) 10^3/uL Absolute Monocytes (0.1-0.8) 10^3/uL Absolute Eosinophils (0.0-0.7) 10^3/uL Absolute Basophils (0.0-0.2) 10^3/uL RBC Morphology Anisocytosis Microcytosis VBG pH (7.31-7.41) VBG pCO2 (41-51) mmHg VBG pO2 mmHg VBG HCO3 (23-28) mmol/L VBG Total CO2 (24-29) mmol/L VBG O2 Saturation % VBG Base Excess (-2-3) mmol/L VBG Lactate (<or=2.0) mmol/L Sodium (136-145) mmol/L Potassium (3.5-5.1) mmol/L Chloride (98-107) mmol/L Carbon Dioxide (21.0-32.0) mmol/L Anion Gap (3-11) mmol/L BUN (7-18) mg/dL Creatinine (0.70-1.30) mg/dL Est GFR (CKD-EPI 2020) (mL/min/1.73m2) Glucose (74-106) mg/dL Hemoglobin A1c (<5.7) % Calcium (8.5-10.1) mg/dL Total Bilirubin (0.2-1.0) mg/dL AST (15-37) U/L ALT (16-63) U/L Alkaline Phosphatase (46-116) U/L Troponin I (<or=76) ng/L Total Protein (6.4-8.2) g/dL Albumin (3.4-5.0) g/dL Lipase (<78) U/L Procalcitonin ng/mL Urine Color (Yellow) Yellow Urine Clarity (Clear) Turbid Urine pH (5-8) 6.0 Ur Specific [place] (1.005-1.025) 1.015 Urine Protein (Neg-Trace) mg/dL 100 H Urine Ketones (Negative) mg/dL Negative Urine Blood (Negative) Moderate H Urine Nitrite (Negative) Negative Urine Bilirubin (Negative) Negative Urine Urobilinogen (Up to 0.2) mg/dL 0.2 Ur Leukocyte Esterase (Negative) Large H Urine RBC Not Applicable Urine WBC (0-5) HPF >50 H Ur Epithelial Cells Not Applicable Urine Crystals Not Applicable Urine Bacteria Not Applicable Urine Mucus Not Applicable Ur Culture Indicated? Yes Urine Glucose (Negative) mg/dL 250 H COVID-19 Source SARS-CoV-2 (PCR) (Negative) Influenza Type A (PCR) (Negative) Influenza Type B (PCR) (Negative) RSV (PCR) (Negative) Add-On Test Request Medical Decision Making Leukocytosis 18,000, neutrophil count 15,000. Creatinine 2.5, BUN 31. Urinalysis: >50 WBCs, purulent. Initial Assessment: 54-year-old male with history of CHF, diabetes, below and above the knee amputations, venous insufficiency, urinary retention, C. difficile infection, Vanco-resistant Enterococcus, presents with fever, worsening confusion, and weakness. Discharged from [facility], [facility]. Barnes catheter in place for a month. Reports abdominal pain, poor historian, alert and oriented but very tired, falls asleep immediately after talking. Left strabismus with disconjugate gaze, dry mucous membranes, no murmur or rub, lungs clear to auscultation, mildly increased work of breathing, diffuse abdominal tenderness, amputation sites not infected, macerated erythematous tissue along entire buttocks bilaterally, no evidence of Lauren's gangrene, no tissue necrosis or crepitus appreciated. ED Course: - Reviewed patient's prior medical history for approximately 10 minutes. - On Bactrim and vancomycin for C. difficile and pyogenic infection at right [id number] amputation site. - Leukocytosis (18,000), neutrophil count (15,000). - VBG reassuring. - Creatinine 2.5, BUN 31. - Urinalysis: >50 WBCs, purulent. - Started on vancomycin and Zosyn to cover skin and urinary mathew. - DNR/DNI per [facility] chart, full code per rehab records. - Requiring oxygen, likely multifactorial due to fatigue, body size, overmedication on methadone and OxyContin. - Vitals stable. - Fluids administered cautiously due to CHF history. - Requires hospital admission for IV antibiotics, continued oxygenation, monitoring. Final Assessment: Patient presents with fever, worsening confusion, and weakness. Likely multifactorial confusion due to fatigue, body size, and potential overmedication. Requires hospital admission for IV antibiotics, oxygenation, and monitoring. Vitals stable, fluids administered cautiously due to CHF history. Clinical Impression: - Fever - Confusion - Weakness - Abdominal pain - UTI - Oxygen requirement - CHF Disposition: - Admission: Requires hospital admission for IV antibiotics, continued oxygenation, monitoring. MDM Components Evaluation: - Number of Differential Diagnoses or Management Options: Fever, confusion, weakness, abdominal pain, UTI, oxygen requirement, CHF. - Amount and Complexity of Data Reviewed: Reviewed prior medical history, leukocytosis, neutrophil count, VBG, creatinine, BUN, urinalysis. - Risk of Complication and Morbidity or Mortality: High risk due to multifactorial confusion, CHF history, ongoing infections, and oxygen requirement. Quality:[facility] Health Related Social Needs: No Data to Display Critical Care Time Critical Care Time Attestation: 35 minutes of critical care time secondary to sepsis urinary tract infection respiratory failure requiring IV antibiotics CT diagnostic imaging, IV fluid resuscitation, oxygen, nebs, steroids, and admission to the hospital PFSH All Active Problems (Updated 01/02/25 @ 23:20 by NICOLE Espinoza) Substance abuse (Acute) Depression (Chronic) Low mean corpuscular volume (MCV) (Acute) CHF (congestive heart failure) (Chronic) Neurogenic bladder (Acute) Clostridioides difficile diarrhea (Acute) Obstructive sleep apnea (Chronic) Hypoventilation associated with obesity (Acute) Cellulitis (Acute) Diabetes (Chronic) UTI (urinary tract infection) (Acute) Social History Smoking risk assessment performed?: No
--- NOTE | 2025-01-02 23:57 | TELEP.MEDR_ITS ---
Date of service: 01/02/25 Time of Service: 23:57 Telepharmacy Home Med Rec Interview Person Interviewed: [facility] Quality Quality of Interview/Accuracy of Medication List: Excellent Sources Sources used to compile medication list: MAR and Other Changes made to Home Medication List: ADDITIONS: All medications were additions Additional Notes Additional Notes: Called Rn to clarify Torsemide dose since it was on med list 4 times. Per RN Torsemide is 100 mg PO QAM and 100 mg PO QPM Recommended Changes Attestation: The home medication list is now updated to the best of my knowledge and is ready to be reconciled by the provider. Please contact the TelePharmacy Medication Reconciliation Pharmacist at for any questions.
[2025-01-03] VITALS (8 sets, daily range): BP systolic 103–118; BP diastolic 47–64; PULSE 64–77; RESP 14–18; TEMP 36.3–37.5; O2SAT 92–94
[2025-01-03] MEDS: VANCOMYCIN/WATER (PEG) 1 GM/200 ML BAG IV (00:22)
[2025-01-03 01:03] LABS: *AMPHETAMINES SCREEN URINE Negative (Negative); *BARBITURATES SCREEN URINE Negative (Negative); *BENZODIAZEPINES SCREEN URINE Negative (Negative); Cannabinoids THC Negative (Negative); Cocaine Screen,Urine Negative (Negative); METHADONE URINE SCREEN Positive (Negative); OPIATES URINE SCREEN Positive (Negative)
[2025-01-03 01:05] LABS: Tricyclic Antidepressants Negative (Negative)
[2025-01-03] MEDS: Lactated Ringers 1,000 ML 125 ML IV (04:22)
[2025-01-03 06:40] LABS: HCT 33.2 % (40.0-50.0); HGB 9.6 g/dL (13.5-17.5); MCH 21.3 pg (27.0-33.0); MCHC 28.9 % (32.0-36.0); MPV 10.4 fL (8.0-11.0); Platelet Count 217 10^3/uL (130-400); RDW-SD 54.7 fL; WBC 13.88 10^3/uL (4.4-10.8)
[2025-01-03 07:01] LABS: Iron 10 ug/dL (65-175); Total Iron Binding Capacity 242 ug/dL (250-450); Transferrin Sat 4 % (20-55)
[2025-01-03 07:17] LABS: MCV 74 fL (80-95)
[2025-01-03 07:19] LABS: AST 26 U/L (15-37); Albumin 2.3 g/dL (3.4-5.0); Alkaline Phosphatase 136 U/L (46-116); Anion Gap 9.3 mmol/L (3-11); BUN 36 mg/dL (7-18); Bilirubin, Total 0.5 mg/dL (0.2-1.0); CO2 27.7 mmol/L (21.0-32.0); CREATININE 2.3 mg/dL (0.70-1.30); Chloride 101 mmol/L (98-107); Estimated GFR 33.33 (mL/min/1.73m2); Glucose 178 mg/dL (74-106); Potassium 4.4 mmol/L (3.5-5.1); Sodium 138 mmol/L (136-145)
[2025-01-03 07:50] LABS: ALT 20 U/L (16-63); NT-proBNP 894 pg/mL (<300)
[2025-01-03 09:10] LABS: Vancomycin, Random 22.7 ug/mL
[2025-01-03] MEDS: Pregabalin 150 MG CAP 300 MG PO ×2 (10:52→20:34)
[2025-01-03] MEDS: oxyCODONE-CR 20 MG TABCR 40 MG PO ×2 (10:53→20:35)
[2025-01-03] MEDS: Cholecalciferol (Vitamin D3) 1,000 UNIT TAB 1000 UNITS PO (10:53)
[2025-01-03] MEDS: buPROPion-CR 150 MG TABCR 300 MG PO (10:53)
[2025-01-03] MEDS: Venlafaxine 150 MG CAPCR PO (10:53)
[2025-01-03] MEDS: Spironolactone 50 MG TAB PO ×2 (10:54→20:35)
[2025-01-03] MEDS: OLANZapine 5 MG TAB PO (10:54)
[2025-01-03] MEDS: Enoxaparin 40 MG/0.4 ML SYR SC ×2 (10:54→23:20)
[2025-01-03] MEDS: Empaglifozin 25 MG TAB PO (10:54)
--- NOTE | 2025-01-03 12:11 | DIABASSESS_ITS ---
Date of service: 01/03/25 Time of Service: 12:42 Diabetes Note Reason for Visit: received request for diabetes ed/mgt consult NOTE: 54yo male pt who resides in senior living being treated for CHF, UTI, cellulitis to lower legs, c.diff A1c 7.6% yesterday. home meds listed include 25mg empagliflozin, 95u insulin glargine bid, insulin lispro sliding scale HS and 6u at breakfast, 15u at lunch and dinner, 9units HS, metformin 500mg BID. He is currently ordered for mod sliding scale novolog at meals and 2200 and glargine 95u BID. fasting glucose 178 this morning and 177 at breakfast and 221 at lunch. GFR today 33, total protein wnl and low albumin 2.3. Hx of one BKA and AKA resulting in being chair/bed bound and developing wound to buttocks. Pt denies frequent lows. Recommendations: Continue current insulin protocol with goal of glucose 70-180. Metformin not indicated currently with lower GFR. Would definitely approach GLP-1 as with his current level of insulin use and morbid obesity, there is surely leptin resistance that will prevent him from becoming adequately satisfied after eating and continue to promote weight gain. Time Spent in Nutritional Counseling and Treatment: 15min
[2025-01-03] MEDS: Insulin Aspart 300 UNITS/3 ML PEN SC ×3 (13:05→23:19)
--- NOTE | 2025-01-03 13:14 | PHA.REVIEW2 ---
Pharmacy Admission Review Admission Clinical Review Admission Pharmacy Review: Substance abuse (Acute) Low mean corpuscular volume (MCV) (Acute) Neurogenic bladder (Acute) Clostridioides difficile diarrhea (Acute) Hypoventilation associated with obesity (Acute) Cellulitis (Acute) UTI (urinary tract infection) (Acute) acetaminophen (From Excedrin Extra Strength) Adverse Reaction (Unknown, Verified 01/03/25 07:59) Unknown aspirin Adverse Reaction (Unknown, Verified 01/03/25 07:59) Unknown caffeine (From Excedrin Extra Strength) Adverse Reaction (Unknown, Verified 01/03/25 07:59) Unknown gabapentin Adverse Reaction (Unknown, Verified 01/03/25 07:59) Unknown ibuprofen Adverse Reaction (Unknown, Verified 01/03/25 07:59) Unknown sertraline Adverse Reaction (Unknown, Verified 01/03/25 07:59) Unknown Resuscitation Status Full Code Height 4 ft 3 in Weight 169.9 kg Pharmacy Admission Review Renal Dosing Renal Dosing: BUN 36 mg/dL (7-18) H 01/03/25 06:10 Creatinine 2.3 mg/dL (0.70-1.30) H 01/03/25 06:10 Medications needing adjustments: Reviewed (CrCl 44.94 mL/min, BUN increased from 31, Scr decreased from 2.5) List of meds needing interventions: Patient has bilateral AKA. Height that is in [employer] is patients height after amputation. Would need to know patients height prior to amputation to accurately calculate CrCl using estimated body weight loss (EBWL). There is no information in patients chart regarding pre-amputation height. Anticoagulation Anticoagulation: Hgb 9.6 g/dL (13.5-17.5) L 01/03/25 06:10 Hct 33.2 % (40.0-50.0) L 01/03/25 06:10 Plt Count 217 10^3/uL (130-400) 01/03/25 06:10 Creatinine 2.3 mg/dL (0.70-1.30) H 01/03/25 06:10 DVT Prophylaxis: Reviewed (Hgb decreased from 10.5) Medications: Enoxaparin (40mg q12h) Opiate Usage Evaluate Pain Scale/Pains Meds: Reviewed (methadone 40mg TID, Oxycontin 40mg BID + oxycodone 10mg q4h PRN - no doses given) Scheduled Bowel Reg ordered if on Opiates?: Yes (Senna) Relevant Labs Relevant Labs: Sodium 138 mmol/L (136-145) 01/03/25 06:10 Potassium 4.4 mmol/L (3.5-5.1) 01/03/25 06:10 Chloride 101 mmol/L (98-107) 01/03/25 06:10 Electrolytes, C-Reactive P, ESR: Reviewed DM Control DM Control: Glucose 178 mg/dL (74-106) H 01/03/25 06:10 Hemoglobin A1c 7.6 % (<5.7) H 01/02/25 18:10 Finger Stick Blood Glucose 221 1130 Finger Stick Blood Glucose 221 1130 Finger Stick Blood Glucose 177 0743 Finger Stick Blood Glucose 177 0743 DM Control: Reviewed Insulin Dosing, Diabetic Medication: Has orders for SS insulin and glargine 95 untis BID Cardiac Review Cardiac Review: Troponin I 16 ng/L (<or=76) 01/02/25 22:01 NT-Pro-B Natriuret Pep 894 pg/mL (<300) H 01/03/25 06:10 BP, HR, EF%: Reviewed (BP and HR WNL) List meds needing interventions: Has orders for spironolactone 50mg BID and torsemide 100mg BID QTc Review QTc: Reviewed (487 from 01/02/25) IV to PO Switch IV Medications: Reviewed (vancomycin) Home Meds Home Med List reviewed: Reviewed Relevent Home Meds Not ordered & why?: albuterol (PRN), metformin (on hold), nystatin powder, potassium, Fleet enema (PRN) Med Rec completed by overnight pharmacy Current Meds Current Medication Order Review: Intervened Comments: Added IV admission order set Pharmacy Antibiotic Review Relevant Labs: Relevant Labs 01/02/25 20:08 Procalcitonin 6.88 WBC 13.88 10^3/uL (4.4-10.8) H 01/03/25 06:10 Procalcitonin 6.88 ng/mL 01/02/25 20:08 Temperature 37.2 C Temperature 36.3 C Temperature 37.0 C Pharmacy Antibiotic Activity: C/S review and Reviewed, no change Comments: Patient is on vancomycin, day1, for UTI. Current dose is 1000mg q12h with predicted AUC of 566 and trough of 18.4. Dosing is more difficult due to patients bilateral below the knee amputations. [facility] does not have a model for this specific population. Plan on ordering level every morning with labs to make sure that patient is within therapeutic range. WBC decreased from 18.69 and urine cultures are pending.
[2025-01-03] MEDS: Magnesium Oxide 400 MG TAB PO ×2 (13:48→20:34)
[2025-01-03] MEDS: Torsemide 100 MG TAB PO (13:48)
[2025-01-03] MEDS: Methadone 10 MG TAB 40 MG PO ×2 (13:48→20:33)
--- NOTE | 2025-01-03 14:00 | DI.US_ITS ---
APPROVED REPORT EXAM: Comprehensive 2D, Doppler, and color-flow Echocardiogram Patient Location: In-Patient Room/Bed: 208 Stockroom Keeper: Quan York RDCS (AE) Indications: CHF Other Information Study Quality: Poor. Technically limited study due to body habitus, inability to position patient. Conclusion Technically difficult and poor study Left ventricular wall thickness chamber size and systolic function appears within the range of normal . Unable to assess segmental wall motion Right ventricle may be mildly dilated Both atria appear grossly normal in size Within the limits of the study no significant valvular disease is identified Wall motion Left Ventricle The left ventricle is normal size. Overall LV function appears within normal limits There is normal l eft ventricular wall thickness.. Unable to visualize due to poor subcostal windows. Right Ventricle RV may be mildly dilated The right ventricular systolic function is normal. Atria The left atrium size is normal. The right atrium size is normal. Unable to visualize due to poor subc ostal windows. Aortic Valve Aortic valve is grossly normal in structure. There is no aortic valvular stenosis. No aortic regurgit ation is present. Mitral Valve Mitral valve is grossly normal in structure. No evidence of mitral valve stenosis. There is no mitral valve regurgitation noted. Tricuspid Valve Tricuspid valve is grossly normal in structure and function. There is no tricuspid valve stenosis. Tr michael tricuspid regurgitation. Pulmonic Valve The pulmonary valve is grossly normal in structure. There is no pulmonic valvular stenosis. There is no pulmonic valvular regurgitation. Great Vessels The aortic root is normal in size. The ascending aorta is normal in size. Aortic arch is not well vis ualized. IVC is normal in size and collapses >50% with inspiration. Pericardium There is no obvious pericardial effusion. 2D Dimensions IVSD d PLAX 1.22 cm M: 0.6-1.2 Ao Root d 3.20 cm M: 3.1 - 3.7 LVPW d PLAX 1.19 cm M: 0.6 - 1.2 Ao Asc Diam d 2.96 cm M: 2.6 - 3.4 LVID d PLAX 5.70 cm M: 4.2 - 5.8 LVDs 4.17 cm M: 2.5 - 4.0 LV EF Teichholz 51.7 % FS 26.82 % LV EDV (Teich) 159.8 mL LV ESV (Teich) 77.2 mL Stroke Vol Index (Teich) 37.56 M-Mode TAPSE 3.09 cm (M/F) >1.7 LA Volume LA Length A4C 6.3 cm LA Length A2C 5.5 cm LA Area A4C s 17.71 cm2 LA Area A2C s 13.64 cm2 LA Vol A4C A-L 42.22 mL LA Vol A2C A-L 28.58 mL LA Vol Biplane A-L 37.1 mL LA Vol/BSA A4C A-L LA Vol/BSA A2C A-L LA Vol/BSA BP A-L 16.9 mL/m2 LA Vol A4C MOD 40.6 mL LA Vol A2C MOD 27.7 mL LA Vol BP MOD 35.8 mL RA Volume RA Area A4C 12.2 cm2 RA ESV A4C (A-L) 30.1mL RA Vol/BSA A4C A-L RA Length A4C 4.2 cm RA ESV A4C (MOD) 29.7mL LV Diastology MV E' medial 0.140 (>0.07 m/s) MV E Vmax 0.84 (0.4-1.3 m/s) MV E/E' MED 5.99 (<14) MV A Vmax 0.75 (0.4-1.3 m/s) MV E' lateral 0.196 (>0.1 m/s) E/A Ratio 1.1 MV E/E' LAT 4.30 (<14) MV E' Average 0.168 m/s MV E/E'(average) 5.00 Aortic Valve AoV Vmax 1.59 m/s LVOT Vmax 1.27 m/s AoV Peak Grad 10.1 mmHg LVOT Peak Grad 6.4 mmHg AoV Area (Vmax) 2.52 cm2 LVOT VTI 0.220 m AoV VTI 0.274 m LVOT Mean Grad 4.2 mmHg AoV Mean Yandel. 1.02 m/s LVOT SV 69.65 mL AoV Mean Grad 4.9 mmHg LVOT Diam s 2.00 cm AoV Area (VTI) 2.54 cm2 AV Regurg Peak Gr. 10.12 mmHg Velocity Ratio 0.80 Mitral Valve MV DT 229 (160-240 msec)
--- NOTE | 2025-01-03 14:04 | PDOC.CMIN ---
Date of service: 01/03/25 Time of Service: 14:05 Care Management Initial Assmt Initial Assessment Reason for Hospitalization: UTI Functional Status/Living Situation Patient Presentation: Darin was laying in bed, watching TV when CM arrived. Darin is pleasant and willing to engage in conversation. He presents from [facility] for fever, worsening confusion, and weakness. Prior, he was at [facility] for several months but is originally from [place]. Per Darin, he lived alone in his apartment, which he had to temporarily give up due to his financial siltation, so he is currently unhoused. 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 Per Darin, he is followed by a mental health caser shoe parts through [facility] (Simón Bradshaw, ) who sees him on . Darin is interested in meeting with the Juan Alberto, but does not wish to discuss mandaeism. Town of Residence: [facility] Resides with: Other ([facility]) Significant Other/Family: Local (Sisters - Odalys, and Santa ) Natural Supports: Odalys (sister) is his primary natural support, she helps Darin with his transportation needs and Santa (sister) help with some financial needs. Employment Status: Disabled (Collecting SSI ) Instrumental Activities of Daily Living (ADLs): Requires support Activities/Hobbies/SocialSupport: Darin enjoys playing cards, cribbage, and chatting with company. Medications Medication Management: No Issues/Barriers identified Physical Functioning/Mobility Assistive Device: Wheelchair Advance Directives Advance Directives: Do you have an Advance Directive: AD On File at [facility]: N 01/02/25 18:02 Date Asked 01/02/25 01/02/25 13:18 AD Date Reviewed COLST On File at [facility] COLST Date Scanned Code Status Resuscitation Status Full Code Insurance Coverage/Financial Issues Insurance: Medicaid of [place] Financial Issues: Collects SSI, couldn't afford his apartment. States his insurance has been paying his medical bills. Care Team Visit Care Team Role Provider Type Deann Gibson NP MD [facility] STAFF PHYSICIAN Unknown Unknown Primary Care Provider STAFF PHYSICIAN Rhoda Chanel Other Providers VEGETABLE TRIMMER Angeles Wesley RDN, OSMAR Other Providers TRANSPORT PILOT Lliliam Schmitt Other Providers VEGETABLE TRIMMER Brittney Crockett Other Providers VEGETABLE TRIMMER Cecy Win RN Other Providers VEGETABLE TRIMMER Dwayne Garcia RDN Other Providers TRANSPORT PILOT Tawny Farrell Other Providers VEGETABLE TRIMMER NICOLE Espinoza Emergency Provider PHYSICIANS MANAGER TRACK Roger Farrell MD Admit Provider MD NORMAN STAFF PHYSICIAN Attending Provider Discharge Potential Discharge Needs: PCP F/U Appt Anticipated Barriers to Discharge: None Identified Patient/Family Education Needs: Review discharge instructions, discuss Ask Me Three Transportation: RCT Plan: Anticipate Darin will return to [facility] once medically ready. He will follow up with facility providers and plan of care. He will transport via RCT by wheelchair van. CM will continue to follow. Social Determinants of Health Screening Social Determinants of health last assessed in clinic: 01/03/25 Will the Patient Participate in the Screening?: Yes Do you worry about having a steady place to live?: no Problems where you live: other (unhoused) In the past 12 months, have you had to go without electric, gas, oil or water in your home?: choose not to answer 1. Within the past 12 months, we worried whether our food would run out before we got money to buy more.: Sometimes true 2. Within the past 12 months, the food we bought just didn't last and we didn't have money to get more.: Sometimes true Referred to:: Not Applicable (currently residing in SNF) Has lack of transportation kept you from medical appointments or from doing things needed for daily living?: no Has anyone in your life made you feel unsafe or unsupported?: no How hard is it for you to pay for the very basics like food, housing, medical care, and heating? Would you say it is:: Somewhat hard Do you want help finding or keeping work or a job?: I do not need or want help If for any reason you need help with day-to-day activities such as bathing, preparing meals, shopping, managing finances, etc., do you get the help you need?: I get all the help I need (referring to [facility]) How often do you feel lonely or isolated from those around you?: Sometimes Do you speak a language other than Portuguese at home?: No Comments: unable to participate, patient is lethargic upon admission. Health Related Social Needs Health related social needs: inadequate housing (Z59.1), food insecurity (Z59.41), material hardship(utilities) (Z59.12), problems related to housing/economic circumstances (Z59.89) and feeling lonely/isolated (Z60.8) PFS All Active Problems (Updated 01/02/25 @ 23:20 by NICOLE Espinoza) Substance abuse (Acute) Depression (Chronic) Low mean corpuscular volume (MCV) (Acute) CHF (congestive heart failure) (Chronic) Neurogenic bladder (Acute) Clostridioides difficile diarrhea (Acute) Obstructive sleep apnea (Chronic) Hypoventilation associated with obesity (Acute) Cellulitis (Acute) Diabetes (Chronic) UTI (urinary tract infection) (Acute) Social History Smoking risk assessment performed?: No Housing: retirement Readmission Within the Past 30 Days Yes or No: No
[2025-01-03] MEDS: oxyCODONE 10 MG TAB PO ×2 (15:08→20:59)
[2025-01-03] MEDS: VANCOMYCIN/WATER (PEG) 1 GM/200 ML BAG IVPB (15:08)
--- NOTE | 2025-01-03 15:39 | W.PM.PROGNOT ---
Date of Service Date of service: 01/03/25 Time of Service: 15:39 Assessment and Plan Assessment and plan (1) UTI (urinary tract infection): Status: Acute Assessment and plan: Continue vancomycin awaiting culture results. Ceftriaxone added (2) Diabetes: Status: Chronic Assessment and plan: SSI continue usual scheduled insulin FS ACHS (3) Cellulitis: Status: Acute Assessment and plan: Patient does appear to have significant cellulitis on his legs. Continue vancomycin BC pending Patient was on bactrim long-term and is on vancomycin 125 mg to rodas off cdiff (4) Hypoventilation associated with obesity: Status: Acute Assessment and plan: Recommendation for sleep study as well as initiation of CPAP to PCP on discharge (5) Obstructive sleep apnea: Status: Chronic Assessment and plan: As above (6) Neurogenic bladder: Status: Acute Assessment and plan: Barnes replaced Ceftriaxone IV started pending cx (7) CHF (congestive heart failure): Status: Chronic Assessment and plan: Echocardiogram -technically difficult and poor study. Left ventricular wall thickness chamber size and systolic function appears in normal range. Unable to assess segmental wall motion. Right ventricle may be mildly dilated, both atria appear grossly normal in size. Within the limits of study no significant valvular disease identified. EF is not mentioned. (8) Low mean corpuscular volume (MCV): Status: Acute Assessment and plan: TIBC 242 Iron 10 Venofer 300 mg IV (9) Depression: Status: Chronic Assessment and plan: Will continue with his home meds once they have been reconciled (10) Substance abuse: Status: Acute Assessment and plan: Continue with his home meds Subjective Subjective Patient reports: no new complaints, tolerating liquids well, tolerating a regular diet, voiding w/o difficulty, bowel movement and afebrile; denies flatus, diarrhea, nausea or vomiting Exam Narrative Exam Narrative: General Appearance: Alert and oriented Vital signs: Within normal limits. HEENT: Left strabismus with disconjugate gaze, dry mucous membranes. Respiratory: Lungs clear to auscultation, normal wob Cardiovascular: No murmur or rub. Gastrointestinal: Diffuse abdominal tenderness. Back, Musculoskeletal: Amputation sites not infected. Skin: Macerated erythematous tissue along entire buttocks bilaterally. Neurological: No Lauren's gangrene, tissue necrosis, or crepitus. Objective Last Vital Signs Temp 37.5 C 01/03/25 15:15 Pulse 75 01/03/25 15:15 Resp 15 01/03/25 15:15 BP 103/63 01/03/25 15:15 Pulse Ox 93 01/03/25 15:15 Laboratory Results - last 24 hr 01/02/25 01/02/25 01/02/25 18:10 19:39 20:08 WBC 18.69 H RBC 4.88 Hgb 10.5 L Hct 35.6 L MCV 73 L MCH 21.5 L MCHC 29.5 L RDW 21.0 H Plt Count 226 MPV 9.9 Immature Gran % 0.8 Neutrophils % 84.3 Lymphocytes % 4.8 Monocytes % 9.6 Eosinophils % 0.1 Basophils % 0.4 Nucleated RBC % 0.0 Absolute Neutrophils 15.76 H Absolute Lymphocytes 0.90 L Absolute Monocytes 1.79 H Absolute Eosinophils 0.02 Absolute Basophils 0.07 RBC Morphology See Below Anisocytosis 2+ Microcytosis 1+ VBG pH 7.41 VBG pCO2 48 VBG pO2 38 VBG HCO3 30 H VBG Total CO2 28 VBG O2 Saturation 67 VBG Base Excess 6 H VBG Lactate 1.1 Sodium 134 L Potassium 4.4 Chloride 97 L Carbon Dioxide 30.7 Anion Gap 6.3 BUN 31 H Creatinine 2.5 H Est GFR (CKD-EPI 2020) 30.16 Glucose 149 H Hemoglobin A1c 7.6 H Calcium 9.2 Iron TIBC Transferrin % Sat Total Bilirubin 0.8 AST 29 ALT 22 Alkaline Phosphatase 149 H Troponin I 15 15 NT-Pro-B Natriuret Pep Total Protein 8.5 H Albumin 2.6 L Lipase 20 Procalcitonin 6.88 Urine Color Urine Clarity Urine pH Ur Specific [place] Urine Protein Urine Ketones Urine Blood Urine Nitrite Urine Bilirubin Urine Urobilinogen Ur Leukocyte Esterase Urine RBC Urine WBC Ur Epithelial Cells Urine Crystals Urine Bacteria Urine Mucus Ur Culture Indicated? Urine Glucose Random Vancomycin Urine Opiates Screen Urine Methadone Screen Ur Barbiturates Screen Ur Tricyclics Screen Ur Amphetamines Screen U Benzodiazepines Scrn Urine Cocaine Screen Ur THC Screen COVID-19 Source Nasopharynx SARS-CoV-2 (PCR) Negative Influenza Type A (PCR) Negative Influenza Type B (PCR) Negative RSV (PCR) Negative Add-On Test Request DONE 01/02/25 01/02/25 01/03/25 20:50 22:01 00:30 WBC RBC Hgb Hct MCV MCH MCHC RDW Plt Count MPV Immature Gran % Neutrophils % Lymphocytes % Monocytes % Eosinophils % Basophils % Nucleated RBC % Absolute Neutrophils Absolute Lymphocytes Absolute Monocytes Absolute Eosinophils Absolute Basophils RBC Morphology Anisocytosis Microcytosis VBG pH VBG pCO2 VBG pO2 VBG HCO3 VBG Total CO2 VBG O2 Saturation VBG Base Excess VBG Lactate Sodium Potassium Chloride Carbon Dioxide Anion Gap BUN Creatinine Est GFR (CKD-EPI 2020) Glucose Hemoglobin A1c Calcium Iron TIBC Transferrin % Sat Total Bilirubin AST ALT Alkaline Phosphatase Troponin I 16 NT-Pro-B Natriuret Pep Total Protein Albumin Lipase Procalcitonin Urine Color Yellow Urine Clarity Turbid Urine pH 6.0 Ur Specific [place] 1.015 Urine Protein 100 H Urine Ketones Negative Urine Blood Moderate H Urine Nitrite Negative Urine Bilirubin Negative Urine Urobilinogen 0.2 Ur Leukocyte Esterase Large H Urine RBC Not Applicable Urine WBC >50 H Ur Epithelial Cells Not Applicable Urine Crystals Not Applicable Urine Bacteria Not Applicable Urine Mucus Not Applicable Ur Culture Indicated? Yes Urine Glucose 250 H Random Vancomycin Urine Opiates Screen Positive A Urine Methadone Screen Positive A Ur Barbiturates Screen Negative Ur Tricyclics Screen Negative Ur Amphetamines Screen Negative U Benzodiazepines Scrn Negative Urine Cocaine Screen Negative Ur THC Screen Negative COVID-19 Source SARS-CoV-2 (PCR) Influenza Type A (PCR) Influenza Type B (PCR) RSV (PCR) Add-On Test Request 01/03/25 01/03/25 06:10 08:33 WBC 13.88 H RBC 4.50 Hgb 9.6 L Hct 33.2 L MCV 74 L MCH 21.3 L MCHC 28.9 L RDW 21.0 H Plt Count 217 MPV 10.4 Immature Gran % Neutrophils % Lymphocytes % Monocytes % Eosinophils % Basophils % Nucleated RBC % Absolute Neutrophils Absolute Lymphocytes Absolute Monocytes Absolute Eosinophils Absolute Basophils RBC Morphology Anisocytosis Microcytosis VBG pH VBG pCO2 VBG pO2 VBG HCO3 VBG Total CO2 VBG O2 Saturation VBG Base Excess VBG Lactate Sodium 138 Potassium 4.4 Chloride 101 Carbon Dioxide 27.7 Anion Gap 9.3 BUN 36 H Creatinine 2.3 H Est GFR (CKD-EPI 2020) 33.33 Glucose 178 H Hemoglobin A1c Calcium 9.0 Iron 10 L TIBC 242 L Transferrin % Sat 4 L Total Bilirubin 0.5 AST 26 ALT 20 Alkaline Phosphatase 136 H Troponin I NT-Pro-B Natriuret Pep 894 H Total Protein 8.0 Albumin 2.3 L Lipase Procalcitonin Urine Color Urine Clarity Urine pH Ur Specific [place] Urine Protein Urine Ketones Urine Blood Urine Nitrite Urine Bilirubin Urine Urobilinogen Ur Leukocyte Esterase Urine RBC Urine WBC Ur Epithelial Cells Urine Crystals Urine Bacteria Urine Mucus Ur Culture Indicated? Urine Glucose Random Vancomycin 22.7 Urine Opiates Screen Urine Methadone Screen Ur Barbiturates Screen Ur Tricyclics Screen Ur Amphetamines Screen U Benzodiazepines Scrn Urine Cocaine Screen Ur THC Screen COVID-19 Source SARS-CoV-2 (PCR) Influenza Type A (PCR) Influenza Type B (PCR) RSV (PCR) Add-On Test Request Time Spent with Patient Time Spent with Patient: 25-34 minutes Time was spent: preparing to see the patient(eg.review tests), ordering medications,tests, procedures, referring, communicating with other health child day care center worker, indepentently interpreting results, counseling the patient and care coordination
[2025-01-03] MEDS: Budesonide/Formoterol 160/4.5 6 GM 60 PUFF INH IH (19:49)
[2025-01-03] MEDS: Melatonin 3 MG TAB 6 MG PO (20:34)
[2025-01-03] MEDS: Ascorbic Acid 500 MG TAB PO (20:34)
[2025-01-03] MEDS: Prazosin 1 MG CAP PO (20:35)
[2025-01-03] MEDS: Senna TAB 2 TAB PO (20:36)
[2025-01-03] MEDS: Rosuvastatin 20 MG TAB PO (20:36)
[2025-01-03] MEDS: clonazePAM 0.5 MG TAB PO (20:36)
[2025-01-03] MEDS: IRON SUCROSE COMPLEX 300 MG in Normal Saline 250 ML 167 MG IVPB (20:37)
[2025-01-03] MEDS: Normal Saline 250 ML 167 ML (20:59)
[2025-01-03] MEDS: cefTRIAXone 1 GM/50 ML BAG IVPB (23:19)
[2025-01-03] MEDS: Insulin Glargine 100 UNITS/ML UNIT 95 UNITS SC (23:19)
[2025-01-04] MEDS: VANCOMYCIN/WATER (PEG) 1 GM/200 ML BAG IVPB (02:21)
[2025-01-04 06:43] LABS: Abs Immature Grans 0.06 10^3/uL (0.0-0.06); Absolute Basophil Count 0.03 10^3/uL (0.0-0.2); Absolute Eosinophil Count 0.08 10^3/uL (0.0-0.7); Absolute Lymphocyte Count 1.02 10^3/uL (1.2-3.4); Absolute Monocyte Count 1.33 10^3/uL (0.1-0.8); Absolute Neutrophil Count 8.07 10^3/uL (1.2-6.7); Basophils % 0.3 %; Eosinophils % 0.8 %; HCT 33.1 % (40.0-50.0); HGB 9.6 g/dL (13.5-17.5); Immature Grans % 0.6 %; Lymphocytes % 9.6 %; MCH 20.8 pg (27.0-33.0); MCV 72 fL (80-95); MPV 10.7 fL (8.0-11.0); Monocytes % 12.6 %; Neutrophils % 76.1 %; Platelet Count 235 10^3/uL (130-400); RBC 4.62 10^6/uL (4.36-5.78); RDW 20.6 % (11.8-14.1); RDW-SD 51.9 fL; WBC 10.59 10^3/uL (4.4-10.8)
[2025-01-04 06:59] LABS: Anion Gap 6.9 mmol/L (3-11); BUN 40 mg/dL (7-18); CO2 31.1 mmol/L (21.0-32.0); CREATININE 1.9 mg/dL (0.70-1.30); Calcium 8.9 mg/dL (8.5-10.1); Chloride 98 mmol/L (98-107); Estimated GFR 41.92 (mL/min/1.73m2); Glucose 150 mg/dL (74-106); Magnesium 2.8 mg/dL (1.8-2.4); Potassium 3.6 mmol/L (3.5-5.1); Sodium 136 mmol/L (136-145)
[2025-01-04 07:20] LABS: Anisocytosis 1+; Basophilic Stippling Present; Diff Comment Diff Reviewed; Microcytosis 1+
[2025-01-04 07:26] LABS: Vitamin D 25 Total 22 ng/mL (30-100)
[2025-01-04 07:48] VITALS: BP 116/62; PULSE 77; RESP 16; TEMP 37; O2SAT 91
--- NOTE | 2025-01-04 08:30 | CHAPLAIN ---
I visited with Darin yesterday. He shared some personal history telling me about living in the [facility] and growing up in [place]. Someone came in to do an EKG so I left. I'll plan to visit him again today.
[2025-01-04] MEDS: Pregabalin 150 MG CAP 300 MG PO ×2 (08:33→21:05)
[2025-01-04] MEDS: Venlafaxine 150 MG CAPCR PO (08:34)
[2025-01-04] MEDS: Methadone 10 MG TAB 40 MG PO ×3 (08:34→21:06)
[2025-01-04] MEDS: oxyCODONE-CR 20 MG TABCR 40 MG PO ×2 (08:34→21:05)
[2025-01-04] MEDS: buPROPion-CR 150 MG TABCR 300 MG PO (08:34)
[2025-01-04] MEDS: Budesonide/Formoterol 160/4.5 6 GM 60 PUFF INH IH ×2 (08:34→19:44)
[2025-01-04] MEDS: Pantoprazole 40 MG TABCR PO (08:35)
[2025-01-04] MEDS: Spironolactone 50 MG TAB PO ×2 (08:35→21:06)
[2025-01-04] MEDS: Empaglifozin 25 MG TAB PO (08:35)
[2025-01-04] MEDS: Torsemide 100 MG TAB PO ×2 (08:35→13:32)
[2025-01-04] MEDS: Magnesium Oxide 400 MG TAB PO ×3 (08:35→21:06)
[2025-01-04] MEDS: Vancomycin 125 MG CAP PO (08:35)
[2025-01-04] MEDS: Multivitamin TAB 1 TAB PO (08:35)
[2025-01-04] MEDS: Cholecalciferol (Vitamin D3) 1,000 UNIT TAB 1000 UNITS PO (08:35)
[2025-01-04] MEDS: Zinc Sulfate 220 MG TAB PO (08:35)
[2025-01-04] MEDS: Enoxaparin 40 MG/0.4 ML SYR SC ×2 (08:36→21:04)
[2025-01-04] MEDS: Ascorbic Acid 500 MG TAB PO ×2 (08:36→21:06)
[2025-01-04] MEDS: OLANZapine 5 MG TAB PO (08:36)
[2025-01-04] MEDS: Insulin Glargine 100 UNITS/ML UNIT 95 UNITS SC ×2 (08:43→21:03)
[2025-01-04] MEDS: oxyCODONE 10 MG TAB PO ×2 (08:46→13:32)
[2025-01-04 11:00] LABS: Vancomycin, Random 24.5 ug/mL
[2025-01-04 11:39] VITALS: BP 112/69; PULSE 79; RESP 18; TEMP 37.6; O2SAT 93
[2025-01-04] MEDS: Insulin Aspart 300 UNITS/3 ML PEN SC (12:01)
--- NOTE | 2025-01-04 13:54 | CMPROGNOTE_ITS ---
Date of service: 01/04/25 Time of Service: 13:54 Care Management Progress Note Progress Note Text Progress Note Text: Darin was lying in bed, when CM met with him. Darin states that he is feeling better. CM offered Darin playing cards, which he joyfully accepted. Per Darin, he saw the Inbound Call Center Representative yesterday and would like to meet with her again; CM communicated this with the Inbound Call Center Representative. Darin shared that music therapy came in to see him and he is hopeful they return soon. Darin will return to [facility] when discharged, he is agreeable to this and enjoys their activities. Discharge Potential Discharge Needs: PCP F/U Appt Anticipated Barriers to Discharge: Medical Status Patient/Family Education Needs: Review discharge instructions, discuss Ask Me Three Transportation: RCT RCT Transportation: Wheel chair van Plan: Anticipate Darin will return to [facility] once medically ready. He will follow up with facility providers and plan of care. He will transport via RCT by wheelchair van. CM will continue to follow. Social Determinants of Health Screening Social Determinants of health last assessed in clinic: 01/04/25 Will the Patient Participate in the Screening?: Yes Do you worry about having a steady place to live?: no Problems where you live: other (unhoused) In the past 12 months, have you had to go without electric, gas, oil or water in your home?: choose not to answer 1. Within the past 12 months, we worried whether our food would run out before we got money to buy more.: Sometimes true 2. Within the past 12 months, the food we bought just didn't last and we didn't have money to get more.: Sometimes true Has lack of transportation kept you from medical appointments or from doing things needed for daily living?: no Has anyone in your life made you feel unsafe or unsupported?: no How hard is it for you to pay for the very basics like food, housing, medical care, and heating? Would you say it is:: Somewhat hard Do you want help finding or keeping work or a job?: I do not need or want help If for any reason you need help with day-to-day activities such as bathing, preparing meals, shopping, managing finances, etc., do you get the help you need?: I get all the help I need (referring to [facility]) How often do you feel lonely or isolated from those around you?: Sometimes Do you speak a language other than Tuvaluan at home?: No Comments: unable to participate, patient is lethargic upon admission. Health Related Social Needs Health related social needs: inadequate housing (Z59.1), food insecurity (Z59.41), material hardship(utilities) (Z59.12), problems related to housing/economic circumstances (Z59.89) and feeling lonely/isolated (Z60.8)
--- NOTE | 2025-01-04 15:02 | PGE_ITS ---
Date of Service Date of service: 01/04/25 Time of Service: 15:02 Assessment and Plan Assessment and plan (1) UTI (urinary tract infection): Status: Acute Assessment and plan: Discontinue vancomycin Continue Ceftriaxone Blood cultures positive for gram negative rods (2) Diabetes: Status: Chronic Assessment and plan: SSI continue usual scheduled insulin FS ACHS Glucose 94 this afternoon and insulin held. (3) Cellulitis: Status: Acute Assessment and plan: Patient does appear to have significant cellulitis on his legs. Continue ceftriaxone s/t + BC DC vanco Patient was on bactrim mcc and is on vancomycin 125 mg to rodas off cdiff - continued (4) Hypoventilation associated with obesity: Status: Acute Assessment and plan: Recommendation for sleep study as well as initiation of CPAP to PCP on discharge (5) Obstructive sleep apnea: Status: Chronic Assessment and plan: As above (6) Neurogenic bladder: Status: Acute Assessment and plan: Barnes replaced Continue Ceftriaxone IV (7) CHF (congestive heart failure): Status: Chronic Assessment and plan: Echocardiogram -technically difficult and poor study. Left ventricular wall thickness chamber size and systolic function appears in normal range. Unable to assess segmental wall motion. Right ventricle may be mildly dilated, both atria appear grossly normal in size. Within the limits of study no significant valvular disease identified. EF is not mentioned. (8) Low mean corpuscular volume (MCV): Status: Acute Assessment and plan: TIBC 242 Iron 10 Venofer 300 mg IV (9) Depression: Status: Chronic Assessment and plan: Continue home meds (10) Substance abuse: Status: Acute Assessment and plan: Continue with his home meds Subjective Subjective Patient reports: no new complaints, feels better, pain is less, tolerating liquids well, tolerating a regular diet, no bowel movement and fever; denies diarrhea, vomiting or shortness of breath Exam Narrative Exam Narrative: General Appearance: Alert and oriented Vital signs: Within normal limits. HEENT: Left strabismus with disconjugate gaze, dry mucous membranes. Respiratory: Lungs clear to auscultation, normal wob Cardiovascular: No murmur or rub. Gastrointestinal: Diffuse abdominal tenderness. Back, Musculoskeletal: BilateralAmputation sites not infected.left AKA right BKA Skin: Macerated erythematous tissue along entire buttocks bilaterally. Neurological: No Lauren's gangrene, tissue necrosis, or crepitus. Extrem Other: Bilat AKA Objective Last Vital Signs Temp 37.6 C H 01/04/25 11:39 Pulse 79 01/04/25 11:39 Resp 18 01/04/25 11:39 BP 112/69 01/04/25 11:39 Pulse Ox 93 01/04/25 11:39 Laboratory Results - last 24 hr 01/04/25 01/04/25 06:03 09:55 WBC 10.59 RBC 4.62 Hgb 9.6 L Hct 33.1 L MCV 72 L MCH 20.8 L MCHC 29.0 L RDW 20.6 H Plt Count 235 MPV 10.7 Immature Gran % 0.6 Neutrophils % 76.1 Lymphocytes % 9.6 Monocytes % 12.6 Eosinophils % 0.8 Basophils % 0.3 Nucleated RBC % 0.0 Absolute Neutrophils 8.07 H Absolute Lymphocytes 1.02 L Absolute Monocytes 1.33 H Absolute Eosinophils 0.08 Absolute Basophils 0.03 Basophilic Stippling Present Anisocytosis 1+ Microcytosis 1+ Sodium 136 Potassium 3.6 Chloride 98 Carbon Dioxide 31.1 Anion Gap 6.9 BUN 40 H Creatinine 1.9 H Est GFR (CKD-EPI 2020) 41.92 Glucose 150 H Calcium 8.9 Magnesium 2.8 H 25-OH Vitamin D Total 22 L Random Vancomycin 24.5 Time Spent with Patient Time Spent with Patient: 25-34 minutes Time was spent: preparing to see the patient(eg.review tests), ordering medications,tests, procedures, referring, communicating with other health pharmacy care coordinator, indepentently interpreting results, counseling the patient and care coordination
[2025-01-04 15:25] VITALS: BP 134/76; PULSE 81; RESP 12; TEMP 38.1; O2SAT 92
[2025-01-04] MEDS: IRON SUCROSE COMPLEX 300 MG in Normal Saline 250 ML 167 MG IVPB (15:55)
[2025-01-04 16:21] VITALS: TEMP 37.4
[2025-01-04] MEDS: clonazePAM 0.5 MG TAB PO ×2 (17:19→21:06)
[2025-01-04 19:50] VITALS: BP 138/72; PULSE 44; RESP 18; TEMP 37.3; O2SAT 92
[2025-01-04] MEDS: Normal Saline Flush 10 ML SYR IVP (21:04)
[2025-01-04] MEDS: cefTRIAXone 1 GM/50 ML BAG IVPB (21:04)
[2025-01-04] MEDS: Prazosin 1 MG CAP PO (21:05)
[2025-01-04] MEDS: Rosuvastatin 20 MG TAB PO (21:06)
[2025-01-04] MEDS: Senna TAB 2 TAB PO (21:06)
[2025-01-04] MEDS: Melatonin 3 MG TAB 6 MG PO (21:06)
[2025-01-04 23:28] VITALS: BP 121/70; PULSE 88; RESP 19; TEMP 37.5; O2SAT 93
[2025-01-05] VITALS (7 sets, daily range): BP systolic 109–121; BP diastolic 53–74; PULSE 73–91; RESP 16–20; TEMP 37.4–39.7; O2SAT 92–100
[2025-01-05] MEDS: Acetaminophen 325 MG TAB PO ×2 (03:18→22:05)
[2025-01-05] MEDS: VANCOMYCIN/WATER (PEG) 1 GM/200 ML BAG IV (05:55)
[2025-01-05] MEDS: Normal Saline Flush 10 ML SYR IVP ×3 (05:55→21:13)
[2025-01-05 06:06] LABS: Abs Immature Grans 0.05 10^3/uL (0.0-0.06); Absolute Basophil Count 0.04 10^3/uL (0.0-0.2); Absolute Eosinophil Count 0.13 10^3/uL (0.0-0.7); Absolute Lymphocyte Count 1.12 10^3/uL (1.2-3.4); Absolute Monocyte Count 1.32 10^3/uL (0.1-0.8); Absolute Neutrophil Count 5.27 10^3/uL (1.2-6.7); Basophils % 0.5 %; Eosinophils % 1.6 %; HCT 35.6 % (40.0-50.0); HGB 10.6 g/dL (13.5-17.5); Immature Grans % 0.6 %; Lymphocytes % 14.1 %; MCH 21.1 pg (27.0-33.0); MCHC 29.8 % (32.0-36.0); MCV 71 fL (80-95); MPV 10.3 fL (8.0-11.0); Monocytes % 16.6 %; Neutrophils % 66.6 %; Platelet Count 243 10^3/uL (130-400); RBC 5.03 10^6/uL (4.36-5.78); RDW 21.1 % (11.8-14.1); WBC 7.93 10^3/uL (4.4-10.8)
[2025-01-05 06:23] LABS: BUN 38 mg/dL (7-18); C-Reactive Protein 10.31 mg/dL (<or=0.5); Calcium 9.2 mg/dL (8.5-10.1); Chloride 97 mmol/L (98-107); Estimated GFR 39.42 (mL/min/1.73m2); Glucose 197 mg/dL (74-106); Magnesium 2.4 mg/dL (1.8-2.4); Potassium 3.4 mmol/L (3.5-5.1); Sodium 136 mmol/L (136-145)
[2025-01-05 06:32] LABS: Anisocytosis 2+; Diff Comment Diff Reviewed; Microcytosis 2+
[2025-01-05] MEDS: Methadone 10 MG TAB 40 MG PO ×3 (07:45→21:09)
[2025-01-05] MEDS: Pregabalin 150 MG CAP 300 MG PO ×2 (07:45→21:09)
[2025-01-05] MEDS: Pantoprazole 40 MG TABCR PO (07:45)
[2025-01-05] MEDS: buPROPion-CR 150 MG TABCR 300 MG PO (07:45)
[2025-01-05] MEDS: oxyCODONE-CR 20 MG TABCR 40 MG PO ×2 (07:45→21:09)
[2025-01-05] MEDS: Zinc Sulfate 220 MG TAB PO (07:45)
[2025-01-05] MEDS: Enoxaparin 40 MG/0.4 ML SYR SC ×2 (07:45→21:15)
[2025-01-05] MEDS: Multivitamin TAB 1 TAB PO (07:45)
[2025-01-05] MEDS: Docusate Sodium 100 MG CAP PO (07:46)
[2025-01-05] MEDS: Vancomycin 125 MG CAP PO (07:46)
[2025-01-05] MEDS: Magnesium Oxide 400 MG TAB PO ×3 (07:46→21:12)
[2025-01-05] MEDS: Ascorbic Acid 500 MG TAB PO ×2 (07:46→21:10)
[2025-01-05] MEDS: oxyCODONE 10 MG TAB PO ×3 (07:46→22:05)
[2025-01-05] MEDS: Empaglifozin 25 MG TAB PO (07:46)
[2025-01-05] MEDS: Cholecalciferol (Vitamin D3) 1,000 UNIT TAB 1000 UNITS PO (07:46)
[2025-01-05] MEDS: Venlafaxine 150 MG CAPCR PO (07:46)
[2025-01-05] MEDS: Spironolactone 50 MG TAB PO ×2 (07:46→21:11)
[2025-01-05] MEDS: Torsemide 100 MG TAB PO ×2 (07:46→13:32)
[2025-01-05] MEDS: OLANZapine 5 MG TAB PO (07:46)
[2025-01-05] MEDS: Insulin Aspart 300 UNITS/3 ML PEN SC ×2 (07:47→17:05)
[2025-01-05] MEDS: Insulin Glargine 100 UNITS/ML UNIT 95 UNITS SC (07:47)
[2025-01-05 08:06] LABS: MRSA PCR Positive (Negative)
[2025-01-05] MEDS: Budesonide/Formoterol 160/4.5 6 GM 60 PUFF INH IH ×2 (08:16→21:12)
--- NOTE | 2025-01-05 10:52 | PDOC.CMPRO ---
Documented by User: Tawny Farrell 01/05/25 16:32 Date of service: 01/05/25 Time of Service: 10:53 Care Management Progress Note Progress Note Text Progress Note Text: Darin was lying in bed visiting with his sister and another individual when CM arrived. Per Odalys, he will not eat and this is unlike him; she states that his speech is grumbly and is not at his baseline. Darin requested ice water upon CM arrival, but due to his fluid restriction CM was not able to provide this; this caused Darin to become emotionally escalated, with increase use of profanity. Darin proceeded to threaten to leave A; He states that he is angry about his fluid restrictions and he feels it is his right to have water. Darin stated that he previously discussed this with his nurse, and requested his provider come in to further explain; CM communicated this request with the provider. Darin's family is bringing him drinks, RN explained the concerns with this and CM communicated this the provider. Discharge Potential Discharge Needs: PCP F/U Appt Anticipated Barriers to Discharge: Medical Status Patient/Family Education Needs: Review discharge instructions, discuss Ask Me Three Transportation: RCT RCT Transportation: Wheel chair van Plan: Anticipate Darin will return to [facility] once medically ready. He will follow up with facility providers and plan of care. He will transport via RCT by wheelchair van. CM will continue to follow. Social Determinants of Health Screening Social Determinants of health last assessed in clinic: 01/05/25 Will the Patient Participate in the Screening?: Yes Do you worry about having a steady place to live?: no Problems where you live: other (unhoused) In the past 12 months, have you had to go without electric, gas, oil or water in your home?: choose not to answer 1. Within the past 12 months, we worried whether our food would run out before we got money to buy more.: Sometimes true 2. Within the past 12 months, the food we bought just didn't last and we didn't have money to get more.: Sometimes true Has lack of transportation kept you from medical appointments or from doing things needed for daily living?: no Has anyone in your life made you feel unsafe or unsupported?: no How hard is it for you to pay for the very basics like food, housing, medical care, and heating? Would you say it is:: Somewhat hard Do you want help finding or keeping work or a job?: I do not need or want help If for any reason you need help with day-to-day activities such as bathing, preparing meals, shopping, managing finances, etc., do you get the help you need?: I get all the help I need (referring to [facility]) How often do you feel lonely or isolated from those around you?: Sometimes Do you speak a language other than Puerto Rican at home?: No Comments: unable to participate, patient is lethargic upon admission. Health Related Social Needs Health related social needs: inadequate housing (Z59.1), food insecurity (Z59.41), material hardship(utilities) (Z59.12), problems related to housing/economic circumstances (Z59.89) and feeling lonely/isolated (Z60.8) Documented by User: Brittney Crockett 01/05/25 15:58 Social Determinants of Health Screening Social Determinants of health last assessed in clinic: 01/05/25 Health Related Social Needs Health related social needs: inadequate housing (Z59.1), food insecurity (Z59.41), material hardship(utilities) (Z59.12), problems related to housing/economic circumstances (Z59.89) and feeling lonely/isolated (Z60.8)
--- NOTE | 2025-01-05 12:03 | NUR.NOTE ---
Nursing Note: RN went in to educate patient regarding fluid restriction and bring patient lunch try. Pt states im not doing no fucking fluid restriction i told that doctor that, i aint eating that shit, ill fucking leave Rn left try available for patient at bedside. Provider notified. Call galvez within reach.
--- NOTE | 2025-01-05 13:38 | NUR.NOTE ---
Nursing Note: Rn went into patient room to provide patient with scheduled and PRN medications, patient educated on importance of fluid restrictions. patient and patient family became verbally agressive towards RN, RN told patient and family that patient was not allowed to have more PO fluids due to fluid restrictions and orders set by provider, Anthony jorge aware, provider aware. Pt family providing patient with fluids even though RN educated patient and family that patient was not allowed to have them. Patient stated that if we were not going to give him fluids he was not going to take his meds. Patient took medications from RN.
--- NOTE | 2025-01-05 13:59 | W.PM.PROGNOT ---
Date of Service Date of service: 01/05/25 Time of Service: 13:59 Assessment and Plan Assessment and plan (1) Severe sepsis: Status: Acute Assessment and plan: On admission WBC 19, with tachycardia at HR 95 Source most likely UTI d/t UA positive for leuk esterase VS sacral wound Severity Cr 2.5 on admission -0.5 > baseline Was started one Vancomycin and ceftriaxone in the ED and as per points 2, 3, 4 (2) Gram-negative bacteremia: Status: Acute Assessment and plan: Blood Cx with GNR - not pseudomonas as per senior laboratory technician. Cherelle Source-most likely sacral wound On ceftriaxone (3) Acute kidney injury superimposed on CKD: Status: Acute Assessment and plan: On admission Cr 2.5 from baseline 2.0 Today Cr back to baseline -oral mucous membranes still slightly dry Polyuria on flow sheet might be d/t polyuric recovery phase of JOSE VS metabolic/ hormonal alteration in the setting of polydypsia Strict I&O Q 4 H Daily weight Fluid restriction 1500 ml/24 hours BMP in AM (4) UTI (urinary tract infection): Status: Acute Assessment and plan: Urine Cx negative (5) Diabetes: Status: Chronic Assessment and plan: Continue FS ACHS and SSI coverage Continue home Lantus (6) Cellulitis: Status: Acute Assessment and plan: Improving cellulitis on his legs. On ceftriaxone Blood Cx GNR Patient was on bactrim [facility] and is on vancomycin 125 mg to rodas off cdiff - continued (7) Hypoventilation associated with obesity: Status: Acute Assessment and plan: Recommendation for sleep study as well as initiation of CPAP to PCP on discharge (8) Obstructive sleep apnea: Status: Chronic Assessment and plan: As above (9) Neurogenic bladder: Status: Acute Assessment and plan: Barnes changed on admission - Urine Cx negative (10) CHF (congestive heart failure): Status: Chronic Assessment and plan: as per report from 01/03/25: Echocardiogram -technically difficult and poor study. Left ventricular wall thickness chamber size and systolic function appears in normal range. Unable to assess segmental wall motion. Right ventricle may be mildly dilated, both atria appear grossly normal in size. Within the limits of study no significant valvular disease identified. hemodynamically stable (11) Low mean corpuscular volume (MCV): Status: Acute Assessment and plan: TIBC 242 Iron 10 Venofer 300 mg IV given once - now on oral iron (12) Hypokalemia: Status: Acute Assessment and plan: K 3.4 Supplemented BMP in AM (13) Depression: Status: Chronic Assessment and plan: Ongoing home meds (14) Substance abuse: Status: Acute Assessment and plan: Ongoing home meds discussed with Dr. Bush Subjective Subjective Patient reports: no new complaints, tolerating liquids well, tolerating a regular diet, voiding w/o difficulty, bowel movement and fever; denies diarrhea, nausea, vomiting or shortness of breath Exam Narrative Exam Narrative: General Appearance: No acute distress HEENT: Left strabismus with disconjugate gaze, slightly dry mucous membranes. Respiratory: Lungs clear to auscultation Cardiovascular:regular, S1, S2,no murmur or rub. Gastrointestinal:Obese abd, non-distended, soft and non-tender Musculoskeletal: Left AKA right BKA, intact - no sign of infection Skin: Macerated erythematous tissue along entire buttocks bilaterally. Neurological: Alert and oriented non-focal Psych: RASS 0-1, Extrem Other: Bilat AKA Objective Last Vital Signs Temp 38.3 C H 01/05/25 11:38 Pulse 89 01/05/25 11:38 Resp 19 01/05/25 11:38 BP 114/59 L 01/05/25 11:38 Pulse Ox 94 01/05/25 11:38 Laboratory Results - last 24 hr 01/05/25 01/05/25 05:15 06:20 WBC 7.93 RBC 5.03 Hgb 10.6 L Hct 35.6 L MCV 71 L MCH 21.1 L MCHC 29.8 L RDW 21.1 H Plt Count 243 MPV 10.3 Immature Gran % 0.6 Neutrophils % 66.6 Lymphocytes % 14.1 Monocytes % 16.6 Eosinophils % 1.6 Basophils % 0.5 Nucleated RBC % 0.0 Absolute Neutrophils 5.27 Absolute Lymphocytes 1.12 L Absolute Monocytes 1.32 H Absolute Eosinophils 0.13 Absolute Basophils 0.04 RBC Morphology See Below Anisocytosis 2+ Microcytosis 2+ Sodium 136 Potassium 3.4 L Chloride 97 L Carbon Dioxide 30.0 Anion Gap 9.0 BUN 38 H Creatinine 2.0 H Est GFR (CKD-EPI 2020) 39.42 Glucose 197 H Calcium 9.2 Magnesium 2.4 C-Reactive Protein 10.31 H MRSA (TEM-PCR) Positive A Time Spent with Patient Time Spent with Patient: >50 minutes Time was spent: preparing to see the patient(eg.review tests), obtaining and/or reviewing separately otained hiistory, ordering medications,tests, procedures, referring, communicating with other health restorative care technician, indepentently interpreting results, counseling the patient and care coordination
--- NOTE | 2025-01-05 17:34 | CHAPLAIN ---
Darin was sleeping when I visited. His DROP MACHINE OPERATOR, Lucila, was also coming in to check his blood sugar levels, so we gently woke him. He seemed startled at first, but didn't mind having a conversation. He'd been watching old football playoff games. 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 I'll continue to visit. Darin told his Cable Installer Repairer Helper that he was interested in cashier host/hostess visits, but did not want to talk about spiritism.
[2025-01-05] MEDS: Senna TAB 2 TAB PO (21:08)
[2025-01-05] MEDS: clonazePAM 0.5 MG TAB PO (21:11)
[2025-01-05] MEDS: Rosuvastatin 20 MG TAB PO (21:11)
[2025-01-05] MEDS: Prazosin 1 MG CAP PO (21:12)
[2025-01-05] MEDS: cefTRIAXone 1 GM/50 ML BAG IVPB (21:13)
[2025-01-05] MEDS: Insulin Glargine 100 UNITS/ML UNIT 45 UNITS SC (21:30)
[2025-01-05] MEDS: Melatonin 3 MG TAB 6 MG PO (22:45)
[2025-01-06] VITALS (7 sets, daily range): BP systolic 110–123; BP diastolic 66–81; PULSE 72–86; RESP 12–20; TEMP 36.3–39.1; O2SAT 91–99
[2025-01-06] MEDS: Normal Saline Flush 10 ML SYR IVP ×2 (01:30→08:31)
[2025-01-06] MEDS: CEFEPIME 2 GM in Normal Saline 100 ML IVPB (01:30)
[2025-01-06] MEDS: Budesonide/Formoterol 160/4.5 6 GM 60 PUFF INH IH ×2 (08:19→19:38)
[2025-01-06] MEDS: Pantoprazole 40 MG TABCR PO (08:27)
[2025-01-06] MEDS: Venlafaxine 150 MG CAPCR PO (08:27)
[2025-01-06] MEDS: Methadone 10 MG TAB 40 MG PO ×3 (08:27→20:44)
[2025-01-06] MEDS: OLANZapine 5 MG TAB PO (08:27)
[2025-01-06] MEDS: Ascorbic Acid 500 MG TAB PO ×2 (08:27→20:43)
[2025-01-06] MEDS: Torsemide 100 MG TAB PO ×2 (08:27→15:01)
[2025-01-06] MEDS: Vancomycin 125 MG CAP PO (08:27)
[2025-01-06] MEDS: Cholecalciferol (Vitamin D3) 1,000 UNIT TAB 1000 UNITS PO (08:28)
[2025-01-06] MEDS: Empaglifozin 25 MG TAB PO (08:28)
[2025-01-06] MEDS: Spironolactone 50 MG TAB PO ×2 (08:28→20:42)
[2025-01-06] MEDS: Magnesium Oxide 400 MG TAB PO ×3 (08:28→20:43)
[2025-01-06] MEDS: Zinc Sulfate 220 MG TAB PO (08:28)
[2025-01-06] MEDS: Pregabalin 150 MG CAP 300 MG PO ×2 (08:28→20:43)
[2025-01-06] MEDS: oxyCODONE-CR 20 MG TABCR 40 MG PO ×2 (08:28→20:43)
[2025-01-06] MEDS: Ferrous Sulfate 325 MG TAB PO (08:29)
[2025-01-06] MEDS: Multivitamin TAB 1 TAB PO (08:29)
[2025-01-06] MEDS: buPROPion-CR 150 MG TABCR 300 MG PO (08:29)
[2025-01-06] MEDS: Enoxaparin 40 MG/0.4 ML SYR SC ×2 (08:31→20:41)
[2025-01-06] MEDS: Insulin Aspart 300 UNITS/3 ML PEN SC ×4 (08:33→22:31)
[2025-01-06] MEDS: Insulin Glargine 100 UNITS/ML UNIT 95 UNITS SC (08:35)
--- NOTE | 2025-01-06 09:09 | CMPROGNOTE_ITS ---
Date of service: 01/06/25 Time of Service: 09:09 Care Management Progress Note Progress Note Text Progress Note Text: Darin was lying in bed watching TV when CM arrived. Per report, Darin is still on a strict fluid restriction with 1500 mL daily. Darin requested ice water upon arrival, but due to his fluid restriction CM was not able to provide this. Darin states that his night went horrible and he couldn't sleep due to his thoughts of getting a drink and he is still feeling pissed off. CM communicated with RN, and educated Darin on when his next drink would be (with scheduled meds). CM will continue to follow. Discharge Potential Discharge Needs: PCP F/U Appt Anticipated Barriers to Discharge: Medical Status Patient/Family Education Needs: Review discharge instructions, discuss Ask Me Three Transportation: RCT RCT Transportation: Wheel chair van Plan: Anticipate Darin will return to [facility] once medically ready. He will follow up with facility providers and plan of care. He will transport via RCT by wheelchair van.CM will continue to follow. Social Determinants of Health Screening Social Determinants of health last assessed in clinic: 01/06/25 Will the Patient Participate in the Screening?: Yes Do you worry about having a steady place to live?: no Problems where you live: other (unhoused) In the past 12 months, have you had to go without electric, gas, oil or water in your home?: choose not to answer 1. Within the past 12 months, we worried whether our food would run out before we got money to buy more.: Sometimes true 2. Within the past 12 months, the food we bought just didn't last and we didn't have money to get more.: Sometimes true Has lack of transportation kept you from medical appointments or from doing things needed for daily living?: no Has anyone in your life made you feel unsafe or unsupported?: no How hard is it for you to pay for the very basics like food, housing, medical care, and heating? Would you say it is:: Somewhat hard Do you want help finding or keeping work or a job?: I do not need or want help If for any reason you need help with day-to-day activities such as bathing, preparing meals, shopping, managing finances, etc., do you get the help you need?: I get all the help I need (referring to [facility]) How often do you feel lonely or isolated from those around you?: Sometimes Do you speak a language other than Venezuelan at home?: No Comments: unable to participate, patient is lethargic upon admission. Health Related Social Needs Health related social needs: inadequate housing (Z59.1), food insecurity (Z59.41), material hardship(utilities) (Z59.12), problems related to housing/economic circumstances (Z59.89) and feeling lonely/isolated (Z60.8)
--- NOTE | 2025-01-06 09:22 | PGE_ITS ---
Date of Service Date of service: 01/06/25 Time of Service: 09:22 Assessment and Plan Assessment and plan (1) Severe sepsis: Status: Acute Assessment and plan: Criteria met on admission WBC 19, with tachycardia at HR 95- WBC improved initially but trending up at 11 today Source most likely was suspected to be UTI d/t UA positive for leuk esterase VS sacral/ gluteal wound Severity Cr 2.5 on admission -0.5 > baseline 2.0 - now 1.9 Was started one Vancomycin and ceftriaxone in the ED and as per points 2, 3, 4 (2) Gram-negative bacteremia: Status: Acute Assessment and plan: Blood Cx with GNR - not pseudomonas as per clinical lab specialist. Cherelle Only one bottle Source-most likely sacral wound Growing Klebsiella sensitive to ceftriaxone-Will discontinue cefepime initiated in the setting of fever overnight and resume cceftriaxone (3) Gram-positive cocci bacteremia: Status: Acute Assessment and plan: Second set of Blood Cx grew GPC in clusters- confirmed MRSA nasal PCR Wound culture Initiate Vancomycin Obtain a chest XR if the patient has not been on chronic oxygen prior to arrival- Lungs are clear bilaterally (4) Acute kidney injury superimposed on CKD: Start date: 01/06/25 Start time: 12:14 Status: Acute Assessment and plan: On admission Cr 2.5 from baseline 2.0 Today Cr remains around baseline -oral mucous membranes still slightly dry Polyuria on flow sheet might be d/t polyuric recovery phase of JOSE VS metabolic/ hormonal alteration in the setting of polydypsia Ongoing Negative I&O balance is less significant - On chronic dose of torsemide 100 mg BID and spironolactone 50 mg BID Strict I&O Q 4 H Daily weight Fluid restriction 1500 ml/24 hours allow ice chips BMP in AM (5) Cellulitis: Status: Acute Assessment and plan: Improving cellulitis on his legs, wound to gluteal areas- stage II Wound consult . Blood Cx Klebsiella and GPC in clusters Wound Cx MRSA nares + as of 01/05/25 And as per point 1 Patient was on bactrim skilled nursing and is on vancomycin 125 mg to rodas off cdiff outpatient - Will continue oral vancomycin (6) UTI (urinary tract infection): Status: Acute Assessment and plan: Urine Cx negative (7) Diabetes: Status: Chronic Assessment and plan: Blood glucose 126-186 Continue FS ACHS and SSI coverage and home Lantus dose (8) Hypoventilation associated with obesity: Status: Acute Assessment and plan: Outpatient sleep study recommended as well as initiation of CPAP by PCP on discharge (9) Obstructive sleep apnea: Status: Chronic Assessment and plan: As above (10) Neurogenic bladder: Status: Acute Assessment and plan: Kwan patent - changed on admission - Urine Cx negative (11) CHF (congestive heart failure): Status: Chronic Assessment and plan: From 01/03/25 report : Echocardiogram -technically difficult and poor study. Left ventricular wall thickness chamber size and systolic function appears in normal range. Unable to assess segmental wall motion. Right ventricle may be mildly dilated, both atria appear grossly normal in size. Within the limits of study no significant valvular disease identified. hemodynamically stable (12) Low mean corpuscular volume (MCV): Status: Acute Assessment and plan: TIBC 242 Iron 10 transferrin sat 4% Continue oral iron IV venofer given once (13) Microcytic anemia: Status: Acute Assessment and plan: As above Hgb 12 today - this might be d/t hemoconcentration was 9.6 on admission and in the setting of CKD- this should have a outpatient f/u (14) Hypokalemia: Status: Acute Assessment and plan: K 3.1 Supplemented BMP in AM (15) Depression: Status: Chronic Assessment and plan: Ongoing home meds (16) Substance abuse: Status: Acute Assessment and plan: Ongoing home meds discussed with Dr. Bush Subjective Subjective Patient reports: no new complaints, tolerating liquids well, tolerating a regular diet (refused breakfast ), voiding w/o difficulty (kwan chronic), no bowel movement and fever; denies nausea, vomiting or shortness of breath Exam Narrative Exam Narrative: General Appearance: No acute distress HEENT: Left strabismus with disconjugate gaze, minimally dry mucous membranes. Respiratory: Lungs clear to auscultation Cardiovascular:regular, S1, S2,no murmur or rub. Gastrointestinal:Obese abd, non-distended, soft and non-tender Musculoskeletal: Left AKA right BKA, intact - no sign of infection Skin: Dry flaking with area of maceration gluteal and LE's Neurological: Alert and oriented x2, non-focal Psych: RASS 0-1, Extrem Other: Bilat AKA Objective Last Vital Signs Temp 36.3 C L 01/06/25 07:12 Pulse 80 01/06/25 07:12 Resp 16 01/06/25 07:12 BP 121/69 01/06/25 07:12 Pulse Ox 91 L 01/06/25 07:12 Time Spent with Patient Time Spent with Patient: >50 minutes Time was spent: preparing to see the patient(eg.review tests), obtaining and/or reviewing separately otained hiistory, ordering medications,tests, procedures, referring, communicating with other health child caregiver private home, indepentently interpreting results, counseling the patient and care coordination
[2025-01-06] MEDS: VANCOMYCIN/WATER (PEG) 2 GM/400 ML BAG IVPB (10:01)
[2025-01-06] MEDS: oxyCODONE 10 MG TAB PO (10:01)
[2025-01-06 10:42] LABS: Abs Immature Grans 0.21 10^3/uL (0.0-0.06); Absolute Basophil Count 0.06 10^3/uL (0.0-0.2); Absolute Eosinophil Count 0.24 10^3/uL (0.0-0.7); Absolute Lymphocyte Count 1.26 10^3/uL (1.2-3.4); Absolute Monocyte Count 1.27 10^3/uL (0.1-0.8); Basophils % 0.5 %; Eosinophils % 2.1 %; HCT 40.1 % (40.0-50.0); Immature Grans % 1.8 %; MCH 21.4 pg (27.0-33.0); MCHC 29.9 % (32.0-36.0); MCV 72 fL (80-95); MPV 10.3 fL (8.0-11.0); Monocytes % 11.1 %; Neutrophils % 73.5 %; Platelet Count 259 10^3/uL (130-400); RDW 21.5 % (11.8-14.1); RDW-SD 52.1 fL; WBC 11.41 10^3/uL (4.4-10.8)
[2025-01-06 10:43] LABS: Absolute Neutrophil Count 8.39 10^3/uL (1.2-6.7)
[2025-01-06 10:52] LABS: Anisocytosis 2+; Diff Comment RBC Morph Reviewed; Microcytosis 2+
[2025-01-06 10:56] LABS: Anion Gap 13.2 mmol/L (3-11); BUN 36 mg/dL (7-18); CO2 29.8 mmol/L (21.0-32.0); CREATININE 1.9 mg/dL (0.70-1.30); Calcium 9.9 mg/dL (8.5-10.1); Chloride 95 mmol/L (98-107); Estimated GFR 41.92 (mL/min/1.73m2); Glucose 185 mg/dL (74-106); Potassium 3.1 mmol/L (3.5-5.1); Sodium 138 mmol/L (136-145)
--- NOTE | 2025-01-06 11:40 | WOUNDCONS_ITS ---
Date of service: 01/06/25 Time of Service: 11:30 Wound Initial Evaluation Narrative Narrative: Patient is a 54 severely obese male (BMI: 50.8) w/ bilateral above the knee amputation's, who was admitted on 01/02/2025 for sepsis in the setting of UTI with JOSE. Patient resides at [facility] where he was found w/ worsening somnolence and hypoxia and sent to [facility]'s ER where he was admitted to the medical/surgical floor. Patient was taking Batrum and Vancomycin to prevent C-Diff. Patient has a PMH significant for CHF, C-Diff, Diabetes, neurogenic bladder, depression, TBI, MRSA, celluitis, tobacco use and substance abuse. Patient has a chronic indwelling kwan catheter draining cloudy yellow urine at this time. Patient noted to have extensive erythemia and skin breakdown on bilateral thighs extending up to the buttocks into the gluteal cleft. Old zinc barrier cream noted on skin and is difficult to remove with cleanser. A stage 2 pressure injury is noted on the L Ischial tuberosity with moderate sanguineous dischrge. Patient noted to have yeasty odor in groin folds, and poor hygeine. 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 One place tries something and then another tries something else and nothing works. Of note: A1C taken on 01/02/2025 was 7.6%, WBC: 11.41 and has had a fever of 39.1 in the last 24 hours. PT is on a bairatric alternating pressure air mattress. Patient has had poor oral intake noted over the last 2 days refusing meals, and he is on a 1500ml fluid restriction at the time of this note. Body Four View: 2 1. Stage 2 pressure injury Wound Left Thigh: Wound Type: Partial Thickness Pressure Ulcer Stage: II Wound General Appearance: Bleeding Wound Bed Greatest Portion: Red (Granulation) Wound Surrounding Tissue Appearance: Dark Red and Macerated Percent of Wound Bed Granulated/Red: 100 Wound Length: 1.18 in Wound Width: 2.76 in Wound Depth: 0.04 in Wound Drainage Amount: Moderate Wound Drainage Odor: None/Absent Wound Drainage Description: Bloody and Sanguineous Wound Topical Solution/Irrigant: Other (Wound Cleanser) Wound Debridement Amount of Tissue Removed: None Circulation, Sensation, Motion Peripheral Pulse Strength: Normal (Radial) Capillary Refill: Less than 3 seconds (Radial ) Skin Temperature: Hot Skin Color: Erythema and Hyperpigmentation Pain Pain Level: 8 Pain Scale Used: Adult Pain Description: Radiating, Dull and Throbbing Wound Summary Wound Summary: Stage II pressure injury on L ischial tuberosity. At assessment, bordered foam dressing was removed exposing irregularly bordered open area with healthy red wound bed present, no s/s of infection noted. During assessment jeannine red blood noted coming from wound and a moderate amount of sanguineous exudate noted on dressing. Periwound area: friable roughened skin that bleeds easily with manipulation. Photo Photo: Treatment/Dressing Change Topicals/Ointments: None and Other (Skin Prep to periwound area ) Cleanse With: Other (Wound Cleanser sprayed on surface of wound and allowed to dwell for 2 minuets that pat dry with sterile gauze ) Dressing Types: Other (Optilock Transparent 6 inch round Dressing ) Nutrition Education Reviewed Nutrition Education: Yes Note: Encouraged to increase oral intake of food with a focus on protein. Patient has refused morning meal, but ate most of lunch tray. Recomendation Recomendation:: Change Dressing once daily Remove old dressing cleanse area with wound cleanser and buttocks and thighs with soap and water, dry well. [place] open areas with wound cleanser allow to dwell for 2 minutes and pat dry with gauze. Apply skin prep to periwound area Apply Optiview transparent 6 inch round dressing to L ischial pressure ulcer and border foam dressings to any other open areas. Encourage pt to shift weight frequently in bed and increase protein intake Physcian/Nurse Practioner Notified: Yes (Maryjo Enrique NP )
[2025-01-06] MEDS: Potassium Chloride 20 MEQ TABCR 40 MEQ PO ×2 (12:12→20:42)
[2025-01-06 12:52] LABS: C-Reactive Protein 9.33 mg/dL (<or=0.5)
--- NOTE | 2025-01-06 13:56 | PCNE_ITS ---
Date of service: 01/06/25 Time of Service: 13:56 History of Present Illness Narrative: Darin was seen in his room. He was lying in bed with HOB slightly elevated. He was asking for water. He was upset that he cannot have water. He was not interested in talking with Palliative care. Reviewed CODE status. Reviewed that he is a FULL code at this time, attempted to verify that this is in line with his goals. He states, I'm not sure. Attempted to revisit and he said, I said I am not sure. HCA- He has documentation that names his sisters, Yang and Diana as HCA. He declined engaging in any other discussion. When questioned if he would be interested in palliative follow-up he states he is not. Assessment and Plan Assessment and plan (1) Severe sepsis: Status: Acute Assessment and plan: Criteria met on admission WBC 19, with tachycardia at HR 95- WBC improved initially but trending up at 11 today Source most likely was suspected to be UTI d/t UA positive for leuk esterase VS sacral/ gluteal wound He is on Vancomycin and ceftriaxone. (2) Gram-negative bacteremia: Status: Acute Assessment and plan: Blood Cx with GNR - not pseudomonas as per labor arbitrator. Only one bottle Source-most likely sacral wound (3) Gram-positive cocci bacteremia: Status: Acute Assessment and plan: Second set of Blood Cx grew GPC in clusters MRSA nasal PCR Wound culture pending Antibiotics as above. (4) Acute kidney injury superimposed on CKD: Start date: 01/06/25 Start time: 12:14 Status: Acute Assessment and plan: On admission Cr 2.5 from baseline 2.0 (5) Cellulitis: Status: Acute Assessment and plan: Improving cellulitis on his legs, wound to gluteal areas- stage II Had Wound consult Cultures as above. (6) UTI (urinary tract infection): Status: Acute Assessment and plan: Urine Cx negative (7) Diabetes: Status: Chronic Assessment and plan: Blood glucose 126-186 Continue FS ACHS and SSI coverage and home Lantus dose (8) Hypoventilation associated with obesity: Status: Acute Assessment and plan: Outpatient sleep study recommended as well as initiation of CPAP by PCP on discharge (9) Obstructive sleep apnea: Status: Chronic Assessment and plan: As above (10) Neurogenic bladder: Status: Acute Assessment and plan: Barnes patent - changed on admission - Urine Cx negative (11) CHF (congestive heart failure): Status: Chronic Assessment and plan: From 01/03/25 report : Echocardiogram -technically difficult and poor study. Left ventricular wall thickness chamber size and systolic function appears in normal range. Unable to assess segmental wall motion. Right ventricle may be mildly dilated, both atria appear grossly normal in size. Within the limits of study n o significant valvular disease identified. hemodynamically stable (12) Low mean corpuscular volume (MCV): Status: Acute Assessment and plan: TIBC 242 Iron 10 transferrin sat 4% Continue oral iron IV venofer given once (13) Microcytic anemia: Status: Acute (14) Hypokalemia: Status: Acute Assessment and plan: K 3.1 Supplemented BMP in AM (15) Depression: Status: Chronic Assessment and plan: Ongoing home meds (16) Substance abuse: Status: Acute Assessment and plan: Ongoing home meds (17) Advanced care planning/counseling discussion: Status: Acute Assessment and plan: Attempted advance care planning discussion. Darin is not open to discussion at this time because he feels like he is not getting enough water. Reviewed CODE status. Reviewed that he is a FULL code at this time, attempted to verify that this is in line with his goals. He states, I'm not sure. Attempted to revisit and he said, I said I am not sure. HCA- He has documentation that names his sisters, Yang and Diana as HCA. He declined engaging in any other discussion. When questioned if he would be interested in palliative follow-up he states he is not. Consider offering palliative care again when he is at the rehab facility, possibly with a sister present. Review of Systems Narrative: States he is not getting enough water to stay alive. Does not engage in review of systems otherwise. [facility] All Active Problems (Updated 01/06/25 @ 17:25 by Lakeshia Chen NP) Advanced care planning/counseling discussion (Acute) Microcytic anemia (Acute) Gram-positive cocci bacteremia (Acute) Hypokalemia (Acute) Acute kidney injury superimposed on CKD (Acute) Severe sepsis (Acute) Gram-negative bacteremia (Acute) Substance abuse (Acute) Depression (Chronic) Low mean corpuscular volume (MCV) (Acute) CHF (congestive heart failure) (Chronic) Neurogenic bladder (Acute) Clostridioides difficile diarrhea (Acute) Obstructive sleep apnea (Chronic) Hypoventilation associated with obesity (Acute) Cellulitis (Acute) Diabetes (Chronic) UTI (urinary tract infection) (Acute) Social History Smoking/Tobacco Use Status: Current, status unknown Smoking risk assessment performed?: Yes Housing: half-way Exam Narrative Exam Narrative: General: Middle-age man, appears older than stated age. Lying in bed with head of bed slightly elevated. He is awake and alert, he does not appear to be in any distress. His skin is dry. Bilateral lower extremity amputations. Results Last Vital Signs Temp 36.3 C L 01/06/25 07:12 Pulse 80 01/06/25 07:12 Resp 16 01/06/25 07:12 BP 121/69 01/06/25 07:12 Pulse Ox 91 L 01/06/25 07:12 Labs 01/06/25 10:31 01/06/25 10:31 Labs: Laboratory Results - last 24 hr 01/06/25 10:31 WBC 11.41 H RBC 5.60 Hgb 12.0 L Hct 40.1 MCV 72 L MCH 21.4 L MCHC 29.9 L RDW 21.5 H Plt Count 259 MPV 10.3 Immature Gran % 1.8 Neutrophils % 73.5 Lymphocytes % 11.0 Monocytes % 11.1 Eosinophils % 2.1 Basophils % 0.5 Nucleated RBC % 0.0 Absolute Neutrophils 8.39 H Absolute Lymphocytes 1.26 Absolute Monocytes 1.27 H Absolute Eosinophils 0.24 Absolute Basophils 0.06 RBC Morphology See Below Anisocytosis 2+ Microcytosis 2+ Sodium 138 Potassium 3.1 L Chloride 95 L Carbon Dioxide 29.8 Anion Gap 13.2 H BUN 36 H Creatinine 1.9 H Est GFR (CKD-EPI 2020) 41.92 Glucose 185 H Calcium 9.9 C-Reactive Protein 9.33 H Time Spent Time Spent with Patient Time Spent(min): 48
[2025-01-06] MEDS: Nystatin OINT 15 GM TUBE TP ×2 (14:59→21:09)
[2025-01-06] MEDS: Prazosin 1 MG CAP PO (20:42)
[2025-01-06] MEDS: Protein Nutritional Supplement 16 GM 1 OUNCE PACKET PO (20:42)
[2025-01-06] MEDS: Rosuvastatin 20 MG TAB PO (20:42)
[2025-01-06] MEDS: Senna TAB 2 TAB PO (20:43)
[2025-01-06] MEDS: clonazePAM 0.5 MG TAB PO (20:44)
[2025-01-06] MEDS: Melatonin 3 MG TAB 6 MG PO (20:44)
[2025-01-06] MEDS: cefTRIAXone 2 GM/50 ML BAG IVPB (20:45)
[2025-01-06 21:07] LABS: Vancomycin, Random 23.9 ug/mL
[2025-01-07 03:58] VITALS: BP 112/80; PULSE 78; RESP 18; TEMP 36.5; O2SAT 94
[2025-01-07 06:38] LABS: Abs Immature Grans 0.32 10^3/uL (0.0-0.06); Absolute Basophil Count 0.09 10^3/uL (0.0-0.2); Absolute Eosinophil Count 0.58 10^3/uL (0.0-0.7); Absolute Lymphocyte Count 1.75 10^3/uL (1.2-3.4); Basophils % 0.7 %; Eosinophils % 4.6 %; HCT 41.8 % (40.0-50.0); HGB 12.2 g/dL (13.5-17.5); Immature Grans % 2.5 %; Lymphocytes % 13.9 %; MCH 21.1 pg (27.0-33.0); MCHC 29.2 % (32.0-36.0); MCV 72 fL (80-95); Monocytes % 10.3 %; Platelet Count 327 10^3/uL (130-400); RBC 5.77 10^6/uL (4.36-5.78); RDW 22.2 % (11.8-14.1); RDW-SD 53.1 fL; WBC 12.58 10^3/uL (4.4-10.8)
[2025-01-07 06:50] LABS: Absolute Neutrophil Count 8.55 10^3/uL (1.2-6.7)
[2025-01-07 06:55] LABS: Magnesium 2.6 mg/dL (1.8-2.4)
[2025-01-07 06:56] LABS: Anion Gap 10.4 mmol/L (3-11); BUN 44 mg/dL (7-18); CO2 29.6 mmol/L (21.0-32.0); Chloride 100 mmol/L (98-107); Estimated GFR 39.42 (mL/min/1.73m2); Glucose 170 mg/dL (74-106); Potassium 3.4 mmol/L (3.5-5.1); Sodium 140 mmol/L (136-145)
[2025-01-07 07:20] VITALS: BP 147/77; PULSE 82; RESP 18; TEMP 37.1; O2SAT 93
[2025-01-07] MEDS: Methadone 10 MG TAB 40 MG PO ×3 (07:26→20:12)
[2025-01-07] MEDS: Potassium Chloride 20 MEQ TABCR 40 MEQ PO ×2 (07:27→20:13)
[2025-01-07] MEDS: Pregabalin 150 MG CAP 300 MG PO ×2 (07:27→20:12)
[2025-01-07] MEDS: Multivitamin TAB 1 TAB PO (07:28)
[2025-01-07] MEDS: buPROPion-CR 150 MG TABCR 300 MG PO (07:28)
[2025-01-07] MEDS: oxyCODONE-CR 20 MG TABCR 40 MG PO ×2 (07:28→20:13)
[2025-01-07] MEDS: Zinc Sulfate 220 MG TAB PO (07:28)
[2025-01-07] MEDS: Vancomycin 125 MG CAP PO (07:28)
[2025-01-07] MEDS: Cholecalciferol (Vitamin D3) 1,000 UNIT TAB 1000 UNITS PO (07:28)
[2025-01-07] MEDS: Venlafaxine 150 MG CAPCR PO (07:28)
[2025-01-07] MEDS: Pantoprazole 40 MG TABCR PO (07:28)
[2025-01-07] MEDS: Magnesium Oxide 400 MG TAB PO ×2 (07:30→20:12)
[2025-01-07] MEDS: OLANZapine 5 MG TAB PO (07:30)
[2025-01-07] MEDS: Spironolactone 50 MG TAB PO ×2 (07:30→20:14)
[2025-01-07] MEDS: Torsemide 100 MG TAB PO ×2 (07:30→15:50)
[2025-01-07] MEDS: Empaglifozin 25 MG TAB PO (07:30)
[2025-01-07] MEDS: Ascorbic Acid 500 MG TAB PO ×2 (07:30→20:14)
[2025-01-07] MEDS: Ferrous Sulfate 325 MG TAB PO (07:30)
[2025-01-07] MEDS: Normal Saline Flush 10 ML SYR IVP (07:31)
[2025-01-07] MEDS: Budesonide/Formoterol 160/4.5 6 GM 60 PUFF INH IH ×2 (08:01→20:39)
--- NOTE | 2025-01-07 09:07 | PGE_ITS ---
Date of Service Date of service: 01/07/25 Time of Service: 09:07 Assessment and Plan Assessment and plan (1) Severe sepsis: Start date: 01/07/25 Start time: 09:12 Status: Acute Assessment and plan: Criteria met on admission WBC 19, with tachycardia at HR 95- WBC improved initially but trending up at 11 today Source most likely was suspected to be UTI d/t UA positive for leuk esterase VS sacral/ gluteal wound He is on Vancomycin and ceftriaxone. (2) Gram-negative bacteremia: Start date: 01/07/25 Start time: 09:12 Status: Acute Assessment and plan: Blood Cx with GNR - not pseudomonas as per photographic laboratory technician. Only one bottle Source-most likely sacral wound Repeat Blood Cx negative X 24-hour (3) Gram-positive cocci bacteremia: Start date: 01/07/25 Start time: 09:12 Status: Acute Assessment and plan: Second set of Blood Cx grew GPC in clusters MRSA nasal PCR Wound culture pending Antibiotics as above. (4) Acute kidney injury superimposed on CKD: Start date: 01/07/25 Start time: 09:12 Status: Acute Assessment and plan: On admission Cr 2.5 from baseline 2.0 (5) Cellulitis: Start date: 01/07/25 Start time: 09:12 Status: Acute Assessment and plan: Improving cellulitis on his legs, wound to gluteal areas- stage II Had Wound consult Cultures as above. (6) UTI (urinary tract infection): Start date: 01/07/25 Start time: 09:13 Status: Acute Assessment and plan: Urine Cx negative (7) Diabetes: Start date: 01/07/25 Start time: 09:13 Status: Chronic Assessment and plan: Blood glucose 126-186 Continue FS ACHS and SSI coverage and home Lantus dose (8) Hypoventilation associated with obesity: Start date: 01/07/25 Start time: 09:13 Status: Acute Assessment and plan: Outpatient sleep study recommended as well as initiation of CPAP by PCP on discharge (9) Obstructive sleep apnea: Start date: 01/07/25 Start time: 09:13 Status: Chronic Assessment and plan: As above (10) Neurogenic bladder: Start date: 01/07/25 Start time: 09:13 Status: Acute Assessment and plan: Kwan patent - changed on admission - Urine Cx negative (11) CHF (congestive heart failure): Start date: 01/07/25 Start time: 09:13 Status: Chronic Assessment and plan: From 01/03/25 report : Echocardiogram -technically difficult and poor study. Left ventricular wall thickness chamber size and systolic function appears in normal range. Unable to assess segmental wall motion. Right ventricle may be mildly dilated, both atria appear grossly normal in size. Within the limits of study no significant valvular disease identified. hemodynamically stable (12) Low mean corpuscular volume (MCV): Start date: 01/07/25 Start time: 09:13 Status: Acute Assessment and plan: TIBC 242 Iron 10 transferrin sat 4% Continue oral iron IV venofer given once (13) Microcytic anemia: Start date: 01/07/25 Start time: 09:13 Status: Acute (14) Hypokalemia: Start date: 01/07/25 Start time: 09:14 Status: Acute Assessment and plan: K 3.1 Supplemented BMP in AM (15) Depression: Start date: 01/07/25 Start time: 09:14 Status: Chronic Assessment and plan: Ongoing home meds (16) Substance abuse: Start date: 01/07/25 Start time: 09:14 Status: Acute Assessment and plan: Ongoing home meds (17) Advanced care planning/counseling discussion: Start date: 01/07/25 Start time: 09:14 Status: Acute Assessment and plan: Palliative care consult completed on 01/06/25- Patient had stated that he was making decision regarding his health and mentioned that he did not care about interventions preventing harm and he would like to have water ( 8l/24 hours) no matter the harm it caused; patient has a Hx of TBI Please read palliative care notes: Reviewed CODE status. Reviewed that he is a FULL code at this time HCA- He has documentation that names his sisters, Yang and Diana as HCA. When questioned if he would be interested in palliative follow-up he states he is not. Consider offering palliative care again when he is at the rehab facility, possibly with a sister present. When discussed with patient, he would like to see palliative again on Thursday because he did not know what the provider was in for and he wants to discuss his code status. Discussed with Dr. Bush Subjective Subjective Patient reports: no new complaints, feels better, tolerating liquids well, tolerating a regular diet (refused breakfast ), voiding w/o difficulty (kwan chronic), flatus, no bowel movement and afebrile; denies nausea, vomiting or shortness of breath Exam Narrative Exam Narrative: General Appearance: No acute distress HEENT: Left strabismus with disconjugate gaze, minimally dry mucous membranes. Respiratory: Lungs clear to auscultation Cardiovascular:regular, S1, S2,no murmur or rub. Gastrointestinal:Obese abd, non-distended, soft and non-tender Musculoskeletal: Left AKA right BKA, intact - no sign of infection Skin: ongoing flaking with area of maceration gluteal and LE's Neurological: Alert and oriented x2, non-focal Psych: RASS 0-1, Extrem Other: Bilat AKA Objective Last Vital Signs Temp 37.1 C 01/07/25 07:20 Pulse 82 01/07/25 07:20 Resp 18 01/07/25 07:20 BP 147/77 H 01/07/25 07:20 Pulse Ox 93 01/07/25 07:20 Laboratory Results - last 24 hr 01/06/25 01/06/25 01/07/25 10:31 20:00 06:30 WBC 11.41 H 12.58 H RBC 5.60 5.77 Hgb 12.0 L 12.2 L Hct 40.1 41.8 MCV 72 L 72 L MCH 21.4 L 21.1 L MCHC 29.9 L 29.2 L RDW 21.5 H 22.2 H Plt Count 259 327 MPV 10.3 10.0 Immature Gran % 1.8 2.5 Neutrophils % 73.5 68.0 Lymphocytes % 11.0 13.9 Monocytes % 11.1 10.3 Eosinophils % 2.1 4.6 Basophils % 0.5 0.7 Nucleated RBC % 0.0 0.0 Absolute Neutrophils 8.39 H 8.55 H Absolute Lymphocytes 1.26 1.75 Absolute Monocytes 1.27 H 1.30 H Absolute Eosinophils 0.24 0.58 Absolute Basophils 0.06 0.09 RBC Morphology See Below Anisocytosis 2+ Microcytosis 2+ Sodium 138 140 Potassium 3.1 L 3.4 L Chloride 95 L 100 Carbon Dioxide 29.8 29.6 Anion Gap 13.2 H 10.4 BUN 36 H 44 H Creatinine 1.9 H 2.0 H Est GFR (CKD-EPI 2020) 41.92 39.42 Glucose 185 H 170 H Calcium 9.9 10.0 Magnesium 2.6 H C-Reactive Protein 9.33 H Random Vancomycin 23.9 Time Spent with Patient Time Spent with Patient: >50 minutes Time was spent: preparing to see the patient(eg.review tests), obtaining and/or reviewing separately otained hiistory, ordering medications,tests, procedures, referring, communicating with other health school childcare attendant, indepentently interpreting results, counseling the patient and care coordination
[2025-01-07] MEDS: VANCOMYCIN/WATER (PEG) 750 MG/150 ML BAG 150 MG IVPB ×2 (11:07→22:26)
[2025-01-07 11:39] VITALS: BP 110/71; PULSE 81; RESP 20; TEMP 36.4; O2SAT 94
[2025-01-07] MEDS: oxyCODONE 10 MG TAB PO (11:50)
[2025-01-07] MEDS: Insulin Aspart 300 UNITS/3 ML PEN SC ×3 (11:51→22:27)
[2025-01-07 15:23] VITALS: BP 129/67; PULSE 82; RESP 18; TEMP 36.9; O2SAT 97
[2025-01-07 20:10] VITALS: BP 127/85; PULSE 77; RESP 18; TEMP 36.2; O2SAT 95
[2025-01-07] MEDS: Prazosin 1 MG CAP PO (20:12)
[2025-01-07] MEDS: Melatonin 3 MG TAB 6 MG PO (20:12)
[2025-01-07] MEDS: Senna TAB 2 TAB PO (20:13)
[2025-01-07] MEDS: Rosuvastatin 20 MG TAB PO (20:13)
[2025-01-07] MEDS: clonazePAM 0.5 MG TAB PO (20:13)
[2025-01-07] MEDS: Enoxaparin 40 MG/0.4 ML SYR SC (20:15)
[2025-01-07] MEDS: cefTRIAXone 2 GM/50 ML BAG IVPB (20:24)
[2025-01-07 23:32] VITALS: BP 114/64; PULSE 78; RESP 20; TEMP 36.9; O2SAT 93
[2025-01-08 03:46] VITALS: BP 108/71; PULSE 79; RESP 19; TEMP 36.2; O2SAT 90
[2025-01-08] MEDS: Acetaminophen 325 MG TAB PO (04:04)
[2025-01-08 06:29] LABS: Abs Immature Grans 0.33 10^3/uL (0.0-0.06); Absolute Lymphocyte Count 1.69 10^3/uL (1.2-3.4); Basophils % 0.9 %; Eosinophils % 4.6 %; HCT 42.7 % (40.0-50.0); HGB 12.5 g/dL (13.5-17.5); Immature Grans % 2.8 %; Lymphocytes % 14.5 %; MCH 21.5 pg (27.0-33.0); MCHC 29.3 % (32.0-36.0); MCV 73 fL (80-95); MPV 10.2 fL (8.0-11.0); Monocytes % 8.6 %; Neutrophils % 68.6 %; Platelet Count 320 10^3/uL (130-400); RBC 5.82 10^6/uL (4.36-5.78); RDW 22.7 % (11.8-14.1); RDW-SD 55.1 fL; WBC 11.63 10^3/uL (4.4-10.8)
[2025-01-08 06:45] LABS: Absolute Eosinophil Count 0.53 10^3/uL (0.0-0.7); Absolute Neutrophil Count 7.98 10^3/uL (1.2-6.7); Anisocytosis 2+; Microcytosis 2+
[2025-01-08 06:48] LABS: Anion Gap 9.3 mmol/L (3-11); BUN 50 mg/dL (7-18); C-Reactive Protein 2.53 mg/dL (<or=0.5); CO2 28.7 mmol/L (21.0-32.0); CREATININE 1.8 mg/dL (0.70-1.30); Calcium 9.7 mg/dL (8.5-10.1); Chloride 101 mmol/L (98-107); Estimated GFR 44.73 (mL/min/1.73m2); Glucose 173 mg/dL (74-106); Potassium 3.5 mmol/L (3.5-5.1); Sodium 139 mmol/L (136-145)
[2025-01-08] MEDS: Methadone 10 MG TAB 40 MG PO ×3 (07:55→20:54)
[2025-01-08] MEDS: oxyCODONE-CR 20 MG TABCR 40 MG PO ×2 (07:55→20:54)
[2025-01-08] MEDS: Torsemide 100 MG TAB PO ×2 (07:55→13:08)
[2025-01-08] MEDS: Docusate Sodium 100 MG CAP PO (07:55)
[2025-01-08] MEDS: Polyethylene Glycol 3350 17 GM PACKET PO (07:55)
[2025-01-08] MEDS: Multivitamin TAB 1 TAB PO (07:55)
[2025-01-08] MEDS: buPROPion-CR 150 MG TABCR 300 MG PO (07:55)
[2025-01-08] MEDS: Potassium Chloride 20 MEQ TABCR 40 MEQ PO ×2 (07:55→20:55)
[2025-01-08] MEDS: Vancomycin 125 MG CAP PO (07:56)
[2025-01-08] MEDS: Ferrous Sulfate 325 MG TAB PO (07:56)
[2025-01-08] MEDS: Venlafaxine 150 MG CAPCR PO (07:56)
[2025-01-08] MEDS: Ascorbic Acid 500 MG TAB PO ×2 (07:56→20:55)
[2025-01-08] MEDS: Empaglifozin 25 MG TAB PO (07:56)
[2025-01-08] MEDS: Cholecalciferol (Vitamin D3) 1,000 UNIT TAB 1000 UNITS PO (07:56)
[2025-01-08] MEDS: Zinc Sulfate 220 MG TAB PO (07:56)
[2025-01-08] MEDS: Spironolactone 50 MG TAB PO ×2 (07:56→20:55)
[2025-01-08] MEDS: Enoxaparin 40 MG/0.4 ML SYR SC ×2 (07:56→20:52)
[2025-01-08] MEDS: Pregabalin 150 MG CAP 300 MG PO ×2 (07:56→20:54)
[2025-01-08] MEDS: Pantoprazole 40 MG TABCR PO (07:56)
[2025-01-08] MEDS: OLANZapine 5 MG TAB PO (07:56)
[2025-01-08] MEDS: Normal Saline Flush 10 ML SYR IVP ×3 (07:57→20:53)
[2025-01-08 08:02] VITALS: BP 93/60; PULSE 50; RESP 17; TEMP 37.7; O2SAT 89
[2025-01-08] MEDS: Budesonide/Formoterol 160/4.5 6 GM 60 PUFF INH IH ×2 (08:15→20:21)
[2025-01-08] MEDS: Insulin Aspart 300 UNITS/3 ML PEN SC ×4 (09:10→23:02)
[2025-01-08] MEDS: Nystatin OINT 15 GM TUBE TP ×2 (09:10→20:54)
[2025-01-08] MEDS: VANCOMYCIN/WATER (PEG) 750 MG/150 ML BAG 150 MG IVPB (11:00)
[2025-01-08 11:05] VITALS: BP 126/82; PULSE 78; RESP 18; TEMP 36; O2SAT 95
--- NOTE | 2025-01-08 11:09 | W.PM.PROGNOT ---
Date of Service Date of service: 01/08/25 Time of Service: 11:09 Assessment and Plan Assessment and plan (1) Severe sepsis: Start date: 01/07/25 Start time: 09:12 Status: Resolved Assessment and plan: Criteria met on admission WBC 19, with tachycardia at HR 95- Source likely urinary with positive blood cultures for Klebsiella pneumoniae Treated with ceftriaxone repeat blood cultures negative Will down step to cefpodoxime to complete a 14-day course (2) Bacteremia due to Klebsiella pneumoniae: Status: Acute Assessment and plan: Repeat blood cultures negative treated with ceftriaxone which will be down stepped to cefpodoxime on discharge to complete a 14-day course (3) UTI (urinary tract infection): Status: Acute Assessment and plan: Urine culture showing mixed growth/contamination so unhelpful likely source of positive blood cultures continue treatment with ceftriaxone downstep to cefpodoxime at discharge, change kwan again prior to discharge (4) Diastolic heart failure: Status: Chronic Assessment and plan: History of anasarca with chronic diastolic heart failure Stable on torsemide 100 mg twice daily and spironolactone 50 mg twice daily Echocardiogram stable with no new cardiomyopathy no significant valvular disease left ventricular wall thickness size and systolic function appears within normal range RV may be mildly dilated with normal right ventricular systolic function Continue empagliflozin Daily weights intake and output and trending basic metabolic panel (5) Below-knee amputation of both lower extremities: Status: Chronic Assessment and plan: right BKA Performed at [facility] in August 2024 Well-healed with no postoperative complications noted per [facility] ID continue Bactrim DS twice daily for suppressive therapy for 6 months ending January 24, 2025 Continue as planned with follow-up outpatient with ID. Needs to maintain oral prophylaxis vancomycin due to history of C. difficile colitis Needs to follow-up with ID prior to discontinuation of his antibiotics Case is discussed with Dr Polo JEFFERSON at [facility] who is in agreement with plan (6) Diabetes mellitus, type II: Status: Acute Assessment and plan: Blood sugars well-controlled in the 150-180's Continue diabetic diet Jardiance 25 daily Blood sugar checks AC and at bedtime with sliding scale coverage (7) Buttock wound: Status: Acute Assessment and plan: see wound care consult with pictures Wounds are severe and chronic No evidence of untreated infection recommendations: Change Dressing once daily Remove old dressing cleanse area with wound cleanser and buttocks and thighs with soap and water, dry well. Winston open areas with wound cleanser allow to dwell for 2 minutes and pat dry with gauze. Apply skin prep to periwound area Apply Optiview transparent 6 inch round dressing to L ischial pressure ulcer and border foam dressings to any other open areas. Encourage pt to shift weight frequently in bed and increase protein intake (8) Hypoventilation associated with obesity: Status: Acute Assessment and plan: Outpatient sleep study recommended (9) Neurogenic bladder: Status: Acute Assessment and plan: Kwan patent - changed on admission, Suspect Klebsiella pneumonia UTI on admission as source of sepsis Will need Kwan catheter changed prior to discharge (10) Microcytic anemia: Status: Chronic Assessment and plan: iron deficiency on supplemental iron. Hemoglobin stable and trending upward (11) Hypokalemia: Status: Acute Assessment and plan: continue repletion and following (12) Depression: Status: Chronic Assessment and plan: Continue home meds including prazosin, clonazepam, olanzapine Effexor and bupropion (13) Substance abuse: Status: Acute Assessment and plan: Ongoing home meds with methadone in addition to medications added for acute on chronic pain syndrome/phantom pain, consider weaning additional opioids, maybe increasing methadone dosing while weaning OxyContin? 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 Reporting constipation Exam Narrative Exam Narrative: Morbidly obese chronically ill male of stated age no acute distress, resting quietly in his bed responding appropriately no behavioral disturbances neurologic he is awake alert oriented head is atraumatic eyes nonicteric noninjected oral mucosa slightly dry neck full range of motion respirations even and unlabored cardiovascular regular rate and rhythm bilateral lower extremity stumps well-healed no erythema drainage or wounds, sacral/ischial wounds not visualized pictures in chart reviewed Objective Last Vital Signs Temp 36 C L 01/08/25 11:05 Pulse 78 01/08/25 11:05 Resp 18 01/08/25 11:05 BP 126/82 01/08/25 11:05 Pulse Ox 95 01/08/25 11:05 Laboratory Results - last 24 hr 01/08/25 06:15 WBC 11.63 H RBC 5.82 H Hgb 12.5 L Hct 42.7 MCV 73 L MCH 21.5 L MCHC 29.3 L RDW 22.7 H Plt Count 320 MPV 10.2 Immature Gran % 2.8 Neutrophils % 68.6 Lymphocytes % 14.5 Monocytes % 8.6 Eosinophils % 4.6 Basophils % 0.9 Nucleated RBC % 0.0 Absolute Neutrophils 7.98 H Absolute Lymphocytes 1.69 Absolute Monocytes 1.00 H Absolute Eosinophils 0.53 Absolute Basophils 0.10 RBC Morphology See Below Anisocytosis 2+ Microcytosis 2+ Sodium 139 Potassium 3.5 Chloride 101 Carbon Dioxide 28.7 Anion Gap 9.3 BUN 50 H Creatinine 1.8 H Est GFR (CKD-EPI 2020) 44.73 Glucose 173 H Calcium 9.7 C-Reactive Protein 2.53 H Time Spent with Patient Time Spent with Patient: >50 minutes Time was spent: preparing to see the patient(eg.review tests), obtaining and/or reviewing separately otained hiistory, ordering medications,tests, procedures, referring, communicating with other health director career and counseling the patient
--- NOTE | 2025-01-08 12:09 | CHAPLAIN ---
When I visited with Darin today, he found out that he liquid restriction and been lifted and he had some Gatorade. Darin said he has few things he can control in his life so he was grateful to be drinking what he wants to drink again. He acknowledged that he had not been pleasant to staff earlier in the day because of his frustration, and later during out visit allowed the NEEDLE GRADER to take his vitals after refusing earlier. Tomorrow Darin will be meeting with someone from Palliative Care. He said he has a better understanding of that palliative is about and looks forward to the conversation. He said the last palliative conversation he didn't get much out of because he didn't understand. He wants to talk about he can lead his life and make decisions about what he wants to do.
[2025-01-08] MEDS: Magnesium Oxide 400 MG TAB PO ×2 (13:08→20:55)
[2025-01-08] MEDS: Methylnaltrexone 12 MG/0.6 ML VIAL SC (13:08)
[2025-01-08] MEDS: oxyCODONE 5 MG TAB PO (13:48)
[2025-01-08 15:30] VITALS: BP 119/76; PULSE 70; RESP 17; TEMP 36.4; O2SAT 92
[2025-01-08 19:51] VITALS: BP 116/66; PULSE 70; RESP 20; TEMP 36.2; O2SAT 97
[2025-01-08] MEDS: cefTRIAXone 2 GM/50 ML BAG IVPB (20:52)
[2025-01-08] MEDS: Melatonin 3 MG TAB 6 MG PO (20:55)
[2025-01-08] MEDS: Rosuvastatin 20 MG TAB PO (20:55)
[2025-01-08] MEDS: Prazosin 1 MG CAP PO (20:55)
[2025-01-08] MEDS: clonazePAM 0.5 MG TAB PO (20:55)
[2025-01-08] MEDS: Senna TAB 2 TAB PO (20:55)
[2025-01-08] MEDS: Sulfameth/Trimeth DS TAB 1 TAB PO (20:55)
[2025-01-08 23:04] VITALS: BP 112/80; PULSE 65; RESP 15; TEMP 36.2; O2SAT 94
[2025-01-09 04:18] VITALS: BP 96/60; PULSE 64; RESP 15; TEMP 36.2; O2SAT 95
[2025-01-09 07:40] VITALS: BP 128/82; PULSE 64; RESP 16; TEMP 36; O2SAT 97
[2025-01-09] MEDS: Budesonide/Formoterol 160/4.5 6 GM 60 PUFF INH IH (08:18)
--- NOTE | 2025-01-09 09:30 | CMDISCH_ITS ---
Date of service: 01/09/25 Time of Service: 09:30 LACE Index Scoring Tool Questions: Length of Stay (in days): 7 - 13 Was the patient admitted via the E.D.?: Yes Comorbidities: Diabetes w/o Complication and Congestive Heart Failure (Diastolic ) E.D. Visits: 1 Answers: Total Score: 12 Risk of Readmission: High Risk Care Management Discharge Plan Reason for Hospitalization: UTI Discharge Plan: Darin will return to [facility] today. He will follow up with facility providers, palliative, and plan of care. He will transport via [facility], as coordinated by CM. Patient/Family Education Needs: Review of discharge instructions, activity, limitations, and plan of care. Discuss Ask Me Three. Services Needed at Discharge: [facility] Facility SDOH Health Related Social Needs: Health related social needs inadequate housing (Z59.1) , food insecurity (Z59.41), material hardship(utilities) (Z59.12), problems related to housing/economic circumstances (Z59.89), feeling lonely/isolated (Z60.8)
--- NOTE | 2025-01-09 09:43 | W.PM.DS.N ---
Date of service: 01/09/25 Time of Service: 09:43 DS: Diagnosis Discharge Diagnosis (1) Severe sepsis: Status: Resolved (2) Bacteremia due to Klebsiella pneumoniae: Status: Acute (3) UTI (urinary tract infection): Status: Acute (4) Diastolic heart failure: Status: Chronic (5) Below-knee amputation of both lower extremities: Status: Chronic (6) Diabetes mellitus, type II: Status: Acute (7) Buttock wound: Status: Acute (8) Hypoventilation associated with obesity: Status: Acute (9) Neurogenic bladder: Status: Acute (10) Microcytic anemia: Status: Chronic (11) Hypokalemia: Status: Acute (12) Depression: Status: Chronic (13) Substance abuse: Status: Acute (14) Advanced care planning/counseling discussion: Status: Acute (15) Clostridioides difficile diarrhea: Status: Chronic Discharge Plan Disposition Patient Disposition: [facility] Condition: Serious Condition: Improving Discharge Details Reason For Visit: UTI Admit Date/Time: 01/02/25 21:51 Admit Provider: Roger Farrell Attending Provider: Roger Farrell Primary Care Provider: Unknown,Unknown Hospital Course Hospital Course: This is a 54-year-old gentleman with a PMHx of TBI, bilateral LE amputation, CKD,CHF, hypertension, DM II on insulin, new to the [facility] system and is currently living at a [facility] facility who presented to the ED on with chief complaint of with worsening somnolence as well as hypoxia; found to be febrile on arrival. Workup was positive for leukocytosis, mild chronic microcytic anemia, Cr at 2.5 from a previous level at 2.0, UA was positive for leukocyte Est., extensive skin cellulitis to the sacral/ischial areas. CT of the chest, abdomen and pelvis was negative but for splenomegaly and mild enlargement of para-aortic lymph nodes. The patient was treated with cefepime and vancomycin in the ED. The patient was admitted to the medical surgical floor for management Severe sepsis, JOSE on CKD, UTI. Blood cultures grew Klebesiella; staphylococcus contaminant. Urine culture was negative. Case discussed with Dr. Cuellar from ID at [facility]. Per [facility] ID continue Bactrim DS twice daily for suppressive therapy for 6 months ending January 24, 2025 The patient will needs to maintain oral prophylaxis vancomycin due to history of C. difficile colitis and to follow-up with ID prior to discontinuation of his antibiotics. The patient will be discharged back to his SNF on a oral cefpodoxime reduced dose of lantus to be adjusted at per outpatient provider; none required for his last 2 inpatient days. Continue blood glucose monitoring AC and HS. Echocardiogram showed: Technically difficult and poor study Left ventricular wall thickness chamber size and systolic function appears within the range of normal. Unable to assess segmental wall motion Right ventricle may be mildly dilated Both atria appear grossly normal in size Within the limits of the study no significant valvular disease is identified Continue daily and PRN dressing change to opened sacral/ischial wounds with wound cleanser and application of mepelex , with Nystatin application to surrounding dry skin/ erythema for 2 weeks with reevaluation by outpatient provider. Recommendation for outpatient provider follow-up: Nutrition/diabtetic consult: -for wound healing and d/t morbid obesity would recommend higher dose cholecalciferol at 250mcg per day (with follow up lab), 220mg zinc sulfate to provide 50mg elemental zinc, and 500mg vitamin C BID. Recommend a GLP-1 to help with probably leptin resistance. -Palliative care follow-up -Recommendation for sleep study as well as initiation of CPAP to PCP on discharge Discussed with Dr. Rollins Hines Meds and New Rx's Prescriptions: New Bio-K plus 50 billion cell capsule,delayed release(DR/EC) 1 cap PO DAILY Qty: 11 0RF cefpodoxime 200 mg tablet 400 mg PO BID Qty: 44 0RF Rx Instructions: must administer with a meal/food nystatin 100,000 unit/gram Ointment 1 applic topical TID Qty: 30 0RF Rx Instructions: Wash, dry sacral/ischial area TID and apply around dressing Continued torsemide 100 mg tablet 100 mg PO BID Rx Instructions: AM and 1400 methadone 10 mg tablet 40 mg PO TID insulin lispro [Humalog KwikPen Insulin] 100 unit/mL insulin pen 1 sliding scale dose subcut AC Rx Instructions: BG 150-199: 2 units BG 200-249: 4 units BG 250-299: 7 units BG 300-349: 10 units BG 250-399: 12 units BG 400-500: 15 units and call insulin lispro [Humalog KwikPen Insulin] 100 unit/mL insulin pen 6 unit subcut QACBREAK Rx Instructions: In addition to sliding scale insulin lispro [Humalog KwikPen Insulin] 100 unit/mL insulin pen 15 unit subcut QACDINNER Rx Instructions: In addition to sliding scale insulin lispro [Humalog KwikPen Insulin] 100 unit/mL insulin pen 15 unit subcut QACLUNCH Rx Instructions: In addition to sliding scale insulin lispro [Humalog KwikPen Insulin] 100 unit/mL insulin pen 9 unit subcut HS Rx Instructions: In addition to sliding scale insulin lispro 100 unit/mL insulin pen 1 sliding scale dose subcut HS Rx Instructions: BG 200-249: 2 units BG 250-299: 3 units BG 300-399: 4 untis and call magnesium oxide 400 mg magnesium capsule 400 mg PO TID nystatin 100,000 unit/gram powder 1 applic topical BID Rx Instructions: To Abdominal Folds venlafaxine 150 mg capsule,extended release 24hr 150 mg PO DAILY olanzapine 5 mg tablet 5 mg PO DAILY albuterol sulfate 90 mcg/actuation aerosol powdr breath activated 2 inh inhalation BID spironolactone 50 mg tablet 50 mg PO BID oxycodone [OxyContin] 40 mg tablet,oral only,ext.rel.12 hr 40 mg PO BID vancomycin 125 mg capsule 125 mg PO DAILY Rx Instructions: For Post-Amputation empagliflozin 25 mg tablet 25 mg PO DAILY cholecalciferol (vitamin D3) 25 mcg (1,000 unit) capsule 25 mcg PO DAILY sulfamethoxazole-trimethoprim [Bactrim DS] 800-160 mg tablet 1 tab PO BID multivitamin Tablet 1 tab PO DAILY pantoprazole 40 mg tablet,delayed release (DR/EC) 40 mg PO DAILY bupropion HCl 150 mg tablet sustained-release 12 hr 300 mg PO DAILY metformin 500 mg tablet 500 mg PO BID budesonide-formoterol [Symbicort] 160-4.5 mcg/actuation HFA aerosol inhaler 2 inh inhalation BID potassium chloride 20 mEq tablet extended release 40 meq PO BID pregabalin [Lyrica] 300 mg capsule 300 mg PO BID oxycodone 10 mg tablet 10 mg PO Q4H PRN (Reason: pain) solifenacin 5 mg tablet 5 mg PO HS clonazepam 0.5 mg tablet 0.5 mg PO HS Patient Comments: Do not exceed 2 mg in total daily rosuvastatin 20 mg tablet 20 mg PO QHS prazosin 1 mg capsule 1 mg PO QHS senna 8.6 mg capsule 17.2 mg PO QHS melatonin 3 mg capsule 6 mg PO QHS acetaminophen [Tylenol] 325 mg tablet 650 mg PO Q6H PRN Fleet Enema 19-7 gram/118 mL enema 118 ml AL DAILY PRN magnesium hydroxide [Milk of Magnesia] 400 mg/5 mL suspension 30 ml PO DAILY PRN (Reason: constipation) bisacodyl [Dulcolax (bisacodyl)] 10 mg suppository 10 mg AL DAILY PRN clonazepam 1 mg tablet 1 mg PO Q12H PRN PRN (Reason: anxiety) Rx Instructions: do not exceed 2 mg in total daily Changed insulin glargine 100 unit/mL (3 mL) insulin pen 45 unit subcut BID Qty: 0 0RF Discharge Instructions Additional Instructions: Nutrition/diabtetic consult: -for wound healing and d/t morbid obesity would recommend higher dose cholecalciferol at 250mcg per day (with follow up lab), 220mg zinc sulfate to provide 50mg elemental zinc, and 500mg vitamin C BID. Recommend a GLP-1 to help with probably leptin resistance. Recommendation for sleep study as well as initiation of CPAP to PCP on discharge Activity:: Activity as Tolerated Equipment/Supplies:: moisés lift / WC Diet:: heart healthy diabetic Discharge Orders Discharge Orders: Discharge Order (Routine); Ordered 01/09/25 Ordered By: Maryjo Enrique Discharge Data Discharge Date/Time-TO BE ENTERED AT DEPARTURE: 01/09/25 12:27 DS: Summary Time Spent with Patient providing and/or coordinating discharge services: Greater than 30 minutes Status at Discharge Functional status at discharge: bed bound Overall status at discharge: patient is progressing back to baseline Mental Status: mental status grossly normal Speech and Movement: speech and movement normal Mood: congruent mood Affect: normal affect Quality:SDOH Health Related Social Needs: Health related social needs inadequate housing (Z59.1), food insecurity (Z59.41), material hardship(utilities) (Z59.12), problems related to housing/economic circumstances (Z59.89), feeling lonely/isolated (Z60.8) Exam Narrative Exam Narrative: Morbidly obese chronically ill male of stated age no acute distress, resting quietly in his bed responding appropriately no behavioral disturbances neurologicallys awake alert oriented X3 Eyes are nonicteric noninjected , oral mucosa slightly dry, respirations even and unlabored, cardiovascular regular rate and rhythm bilateral lower extremity stumps well-healed no erythema drainage or wounds, sacral/ischial wounds present [employer] not visualized but improving as per nursing- pictures in chart reviewed Psych Mental Status: mental status grossly normal Speech and Movement: speech and movement normal Mood: congruent mood Affect: normal affect DS: Data Vitals/I&O Vitals and I&O: Vital Signs Temperature 36.0 C L 01/09/25 07:40 Temperature Source Tympanic 01/09/25 07:40 Pulse 64 01/09/25 07:40 Pulse 87 01/02/25 22:02 Respiratory Rate 16 01/09/25 07:40 Respiratory Effort Non-Labored 01/02/25 23:08 Respiratory Depth Deep 01/02/25 23:08 Respiratory Pattern Irregular 01/02/25 23:08 Blood Pressure 128/82 01/09/25 07:40 Blood Pressure Mean 97 01/09/25 07:40 Blood Pressure Position Sitting 01/02/25 17:40 Pulse Oximetry 97 01/09/25 07:40 Oxygen Delivery Method Room Air 01/09/25 07:40 Oxygen Flow Rate 0 01/09/25 07:40 Pain Level 8 01/09/25 07:40 Comment RN notified 01/09/25 07:40 Intake & Output 01/08/25 01/08/25 01/09/25 11:59 23:59 11:59 Intake Total 1150 / 3360 2210 / 3360 Output Total 400 / 4000 3600 / 4000 1999 / 1999 Balance 750 / -640 -1390 / -640 -1999 -1999 Weight 185.973 kg Intake: IV 150 / 320 170 / 320 Oral 1000 / 3040 2040 / 3040 Output: Urine 400 / 4000 3600 / 4000 1999 / 1999 Other: Urine Color Light Ry Pale Yellow Yellow Urine Appearance Clear Clear Clear Comment Patient's urine is clear and light ry in color, with a strong odor. changed catheter per hospitalist Stool Size Large Stool Characteristics Soft Formed Brown Data Completed and Pending Labs on day of discharge: Preliminary micro results at discharge 01/05/25 05:30 Blood Blood Culture - Preliminary NO GROWTH 96 HOURS 01/06/25 10:17 Blood Blood Culture - Preliminary NO GROWTH 48 HOURS 01/06/25 10:31 Blood Blood Culture - Preliminary NO GROWTH 48 HOURS PFSH All Active Problems (Updated 01/09/25 @ 11:33 by Maryjo Enrique APRN) Buttock wound (Acute) Diabetes mellitus, type II (Acute) Below-knee amputation of both lower extremities (Chronic) Diastolic heart failure (Chronic) Bacteremia due to Klebsiella pneumoniae (Acute) Advanced care planning/counseling discussion (Acute) Microcytic anemia (Chronic) Gram-positive cocci bacteremia (Acute) Hypokalemia (Acute) Acute kidney injury superimposed on CKD (Acute) Gram-negative bacteremia (Acute) Substance abuse (Acute) Depression (Chronic) Low mean corpuscular volume (MCV) (Acute) CHF (congestive heart failure) (Chronic) Neurogenic bladder (Acute) Clostridioides difficile diarrhea (Chronic) Obstructive sleep apnea (Chronic) Hypoventilation associated with obesity (Acute) Cellulitis (Acute) Diabetes (Chronic) UTI (urinary tract infection) (Acute) Social History Smoking/Tobacco Use Status: Current, status unknown Smoking risk assessment performed?: Yes Housing: skilled nursing Time Spent with Patient Time Spent with Patient: 70-84 minutes4 Time was spent: preparing to see the patient(eg.review tests), obtaining and/or reviewing separately otained hiistory, ordering medications,tests, procedures, referring, communicating with other health animal caretaker, indepentently interpreting results, counseling the patient and care coordination
[2025-01-09] MEDS: Insulin Aspart 300 UNITS/3 ML PEN SC (10:10)
[2025-01-09] MEDS: Enoxaparin 40 MG/0.4 ML SYR SC (10:10)
[2025-01-09] MEDS: Nystatin OINT 15 GM TUBE TP (10:10)
[2025-01-09] MEDS: Vancomycin 125 MG CAP PO (10:11)
[2025-01-09] MEDS: Ferrous Sulfate 325 MG TAB PO (10:11)
[2025-01-09] MEDS: Cholecalciferol (Vitamin D3) 1,000 UNIT TAB 1000 UNITS PO (10:11)
[2025-01-09] MEDS: Empaglifozin 25 MG TAB PO (10:11)
[2025-01-09] MEDS: Pregabalin 150 MG CAP 300 MG PO (10:11)
[2025-01-09] MEDS: Potassium Chloride 20 MEQ TABCR 40 MEQ PO (10:11)
[2025-01-09] MEDS: Multivitamin TAB 1 TAB PO (10:11)
[2025-01-09] MEDS: oxyCODONE-CR 20 MG TABCR 40 MG PO (10:11)
[2025-01-09] MEDS: Venlafaxine 150 MG CAPCR PO (10:12)
[2025-01-09] MEDS: Pantoprazole 40 MG TABCR PO (10:12)
[2025-01-09] MEDS: Torsemide 100 MG TAB PO (10:12)
[2025-01-09] MEDS: Sulfameth/Trimeth DS TAB 1 TAB PO (10:12)
[2025-01-09] MEDS: Ascorbic Acid 500 MG TAB PO (10:13)
[2025-01-09] MEDS: oxyCODONE 5 MG TAB PO (10:13)
[2025-01-09] MEDS: Magnesium Oxide 400 MG TAB PO (10:13)
[2025-01-09] MEDS: Zinc Sulfate 220 MG TAB PO (10:13)
[2025-01-09] MEDS: Spironolactone 50 MG TAB PO (10:13)
[2025-01-09] MEDS: buPROPion-CR 150 MG TABCR 300 MG PO (10:13)
[2025-01-09] MEDS: OLANZapine 5 MG TAB PO (10:13)
[2025-01-09] MEDS: Methadone 10 MG TAB 40 MG PO (10:13)
[2025-01-09] MEDS: Cefpodoxime 200 MG TAB 400 MG PO (11:20)
--- NOTE | 2025-01-09 12:17 | NUR.NOTE ---
Nursing Note: Report called into [facility] re[facility] at 1210, report given to Doug SENIOR.
== END 2025-01-09 12:27 | disposition skilled nursing facility (03) ==
LOC: ER 19:10 → MS 23:20
PROVIDERS: Family Medicine; Nurse Practitioner Family; Admitting Provider Hospitalist; Emergency Provider Physician Assistant; Responsible Provider Nurse Practitioner Acute Care; Visit Provider Hospitalist
DX: A41.9 Sepsis, unspecified organism (principal); N39.0 Urinary tract infection, site not specified; L03.115 Cellulitis of right lower limb; L03.116 Cellulitis of left lower limb; E66.2 Morbid (severe) obesity with alveolar hypoventilation; Z68.43 Body mass index [BMI] 50.0-59.9, adult; E11.22 Type 2 diabetes mellitus with diabetic chronic kidney disease; I50.32 Chronic diastolic (congestive) heart failure; A04.72 Enterocolitis due to Clostridium difficile, not specified as recurrent; N31.9 Neuromuscular dysfunction of bladder, unspecified; F32.A Depression, unspecified; F19.10 Other psychoactive substance abuse, uncomplicated; R65.20 Severe sepsis without septic shock; N17.9 Acute kidney failure, unspecified; N18.9 Chronic kidney disease, unspecified; E87.6 Hypokalemia; D50.9 Iron deficiency anemia, unspecified; B96.1 Klebsiella pneumoniae [K. pneumoniae] as the cause of diseases classified elsewhere; Z89.511 Acquired absence of right leg below knee; Z89.612 Acquired absence of left leg above knee; Z22.322 Carrier or suspected carrier of Methicillin resistant Staphylococcus aureus; L89.222 Pressure ulcer of left hip, stage 2; Z87.820 Personal history of traumatic brain injury; Z79.891 Long term (current) use of opiate analgesic
CPT/HCPCS: 00123; 36415; 36416; 71250; 80048; 80053; 80307; 82306; 82805; 82962; 83690; 84145; 85027; 87040; 87077; 87637; 87641; 93005; 94640; 96361; 96365; 96366; 96367; 96372; 96375; 99291; J1650; J3490; 74176; 80202; 81003; 81015; 83036; 83540; 83550; 83605; 83735; 83880; 84484; 85025; 86140; 87070; 87086; 87186; 87205; 93010; 93306; 94664; 99223; 99232; 99233; 99239; G0378; J0131; J0692; J0696; J1100; J1756; J1815; J2212; J2543; J3370; J3372; J7620

== ENCOUNTER 2025-02-16 19:07 | Outpatient (REF) | payer MEDICAID, SELFPAY ==
[2025-02-16 15:53] LABS: Abs Immature Grans 0.03 10^3/uL (0.0-0.06); Absolute Basophil Count 0.08 10^3/uL (0.0-0.2); Absolute Eosinophil Count 0.38 10^3/uL (0.0-0.7); Absolute Lymphocyte Count 1.61 10^3/uL (1.2-3.4); Absolute Monocyte Count 0.72 10^3/uL (0.1-0.8); Absolute Neutrophil Count 5.53 10^3/uL (1.2-6.7); Eosinophils % 4.6 %; HCT 39.1 % (40.0-50.0); HGB 11.9 g/dL (13.5-17.5); Immature Grans % 0.4 %; Lymphocytes % 19.3 %; MCH 23.1 pg (27.0-33.0); MCHC 30.4 % (32.0-36.0); MCV 76 fL (80-95); MPV 10.4 fL (8.0-11.0); Monocytes % 8.6 %; Neutrophils % 66.1 %; Platelet Count 253 10^3/uL (130-400); RBC 5.15 10^6/uL (4.36-5.78); RDW 20.9 % (11.8-14.1); RDW-SD 56.3 fL; WBC 8.35 10^3/uL (4.4-10.8)
[2025-02-16 18:09] LABS: Anisocytosis 2+; Diff Comment RBC Morph Reviewed; Microcytosis 1+
[2025-02-17 15:09] LABS: Hemoglobin A1C 6.7 % (<5.7)
== END 2025-02-16 19:08 | disposition home or self-care (01) ==
LOC: LBN 19:07
PROVIDERS: Visit Provider Family Medicine
DX: E78.5 Hyperlipidemia, unspecified (principal); E11.628 Type 2 diabetes mellitus with other skin complications
CPT/HCPCS: 80053; 80061; 83036; 85025

== ENCOUNTER 2025-03-30 11:22 | Outpatient (REF) | payer MEDICAID, SELFPAY ==
[2025-03-30 11:39] LABS: Abs Immature Grans 0.06 10^3/uL (0.0-0.06); HCT 43.3 % (40.0-50.0); HGB 13.1 g/dL (13.5-17.5); Immature Grans % 0.6 %; MCH 24.2 pg (27.0-33.0); MCHC 30.3 % (32.0-36.0); MCV 80 fL (80-95); MPV 10.1 fL (8.0-11.0); Platelet Count 223 10^3/uL (130-400); RBC 5.42 10^6/uL (4.36-5.78); RDW 16.3 % (11.8-14.1); RDW-SD 46.6 fL; WBC 9.58 10^3/uL (4.4-10.8)
[2025-03-30 11:46] LABS: Glucose 250 mg/dL (Negative)
[2025-03-30 11:58] LABS: RBC >50 HPF (0-2)
[2025-03-30 12:19] LABS: Anion Gap 11.6 mmol/L (3-11); BUN 23 mg/dL (7-18); CO2 27.4 mmol/L (21.0-32.0); Calcium 9.0 mg/dL (8.5-10.1); Chloride 95 mmol/L (98-107); Estimated GFR 72.76 (mL/min/1.73m2); Glucose 208 mg/dL (74-106); Potassium 4.0 mmol/L (3.5-5.1); Sodium 134 mmol/L (136-145)
== END 2025-03-30 11:23 | disposition home or self-care (01) ==
LOC: LBN 11:22
PROVIDERS: Visit Provider Nurse Practitioner Adult Health
DX: N39.0 Urinary tract infection, site not specified (principal)
CPT/HCPCS: 80048; 87077; 81003; 81015; 85025; 87086; 87186

== ENCOUNTER 2025-06-27 12:48 | Outpatient (REF) | payer MEDICAID, SELFPAY ==
[2025-06-27 13:42] LABS: Abs Immature Grans 0.04 10^3/uL (0.0-0.06); HCT 41.3 % (40.0-50.0); HGB 12.4 g/dL (13.5-17.5); Immature Grans % 0.5 %; MCH 22.7 pg (27.0-33.0); MCHC 30.0 % (32.0-36.0); MCV 76 fL (80-95); MPV 10.8 fL (8.0-11.0); Platelet Count 210 10^3/uL (130-400); RBC 5.47 10^6/uL (4.36-5.78); RDW 15.7 % (11.8-14.1); RDW-SD 42.5 fL; WBC 8.85 10^3/uL (4.4-10.8)
[2025-06-27 14:04] LABS: Hemoglobin A1C 7.3 % (<5.7)
[2025-06-27 14:14] LABS: ALT 27 U/L (16-63); AST 19 U/L (15-37); Albumin 2.9 g/dL (3.4-5.0); Alkaline Phosphatase 153 U/L (46-116); Anion Gap 8.4 mmol/L (3-11); BUN 18 mg/dL (7-18); Bilirubin, Total 0.3 mg/dL (0.2-1.0); CO2 31.6 mmol/L (21.0-32.0); Calcium 8.7 mg/dL (8.5-10.1); Calculated LDL 44 mg/dL (<100); Chloride 99 mmol/L (98-107); Cholesterol 137 mg/dL (<200); Estimated GFR 66.10 (mL/min/1.73m2); Glucose 217 mg/dL (74-106); HDL Cholesterol 37 mg/dL (>or=40); Magnesium 2.6 mg/dL (1.8-2.4); Potassium 3.5 mmol/L (3.5-5.1); Sodium 139 mmol/L (136-145); Total Protein 7.6 g/dL (6.4-8.2); Triglyceride 281 mg/dL (<150); Vitamin D 25 Total 26 ng/mL (30-100)
== END 2025-06-27 12:49 | disposition home or self-care (01) ==
LOC: LBN 12:48
PROVIDERS: Visit Provider Nurse Practitioner Adult Health
DX: E11.628 Type 2 diabetes mellitus with other skin complications (principal)
CPT/HCPCS: 80053; 80061; 82306; 83036; 83735; 85025

== ENCOUNTER 2025-07-15 15:27 | Outpatient (REF) | payer MEDICAID, SELFPAY ==
[2025-07-15 16:04] LABS: Glucose 500 mg/dL (Negative)
[2025-07-15 16:30] LABS: RBC 0-2 HPF (0-2)
== END 2025-07-15 15:28 | disposition home or self-care (01) ==
LOC: LBN 15:27
PROVIDERS: Visit Provider Family Medicine
DX: N39.0 Urinary tract infection, site not specified (principal)
CPT/HCPCS: 87077; 81003; 81015; 87086; 87186

== ENCOUNTER 2025-07-22 17:03 | Outpatient (REF) | payer MEDICAID, SELFPAY ==
[2025-07-24 09:45] LABS: HIV-1/2 Ag & Ab Screen Negative (Negative)
[2025-07-24 09:58] LABS: HBs Antibody, Quant <3.1 mIU/mL (See Note); Hepatitis B Surface Antigen Negative (Negative)
[2025-07-24 10:19] LABS: Hepatitis C Ab w Rflx HCV PCR Negative (Negative)
== END 2025-07-22 17:04 | disposition home or self-care (01) ==
LOC: LBN 17:03
PROVIDERS: Visit Provider Nurse Practitioner Adult Health
DX: B20 Human immunodeficiency virus [HIV] disease (principal); B15.9 Hepatitis A without hepatic coma
CPT/HCPCS: 86704; 86706; 86803; 87340; 87389

== ENCOUNTER 2025-08-30 10:50 | Outpatient (REF) | payer MEDICAID, SELFPAY ==
[2025-08-30 11:49] LABS: Glucose 500 mg/dL (Negative)
[2025-08-30 11:54] LABS: WBC 20-50 HPF (0-5)
== END 2025-08-30 10:51 | disposition home or self-care (01) ==
LOC: LBN 10:50
PROVIDERS: Visit Provider Nurse Practitioner Adult Health
DX: N39.0 Urinary tract infection, site not specified (principal)
CPT/HCPCS: 87077; 81003; 81015; 87086; 87186